=== PATIENT | female | born 1965 | race Caucasian/White ===

== ENCOUNTER 2016-10-11 17:03 | Emergency (ER) | payer BC ==
[2016-10-11] MEDS ORDERED: BACIGUENT PACKET TP ONE (17:17)
[2016-10-11] MEDS ORDERED: Adacel Vial IM ONE ×2 (17:17→17:23)
[2016-10-11] MEDS ORDERED: BACIGUENT PACKET ONE (17:20)
[2016-10-11] MEDS ORDERED: TORAdol 30 mg Injection IM ONE (17:36)
--- NOTE | 2016-10-11 17:43 | ERPHSYRPT ---
- History of Present Illness Time Seen by Provider: 10/11/16 17:29 Source: patient Exam Limitations: no limitations Patient Subjective Stated Complaint: pt states she fell last night while using the restroom. pt c/o pain to left face and right side of neck and right upper back. denies any loss of consciousness. Triage Nursing Assessment: ptp pink, warm, dry. c-collar placed upon arrival to ER. pt ambulated into ER without difficulty. laceration noted to left eyebroe. no brusing or deformities noted to neck or back. pupils perrl. Physician History: This is a 51-year-old white female with history of hypothyroidism depression she arrives with complaint of pain in her right lateral neck right trapezius muscle also a laceration to her left supraorbital ridge symptoms since 11:00 last night. According to the patient she was on the commode and fell over, striking the left side of her face she has some pain in the left supraorbital ridge she has a 2.5 cm very straight laceration just inferior to the left eyebrow. She states she had no loss of consciousness she has pain in her neck is described above in the pain overlying the right trapezius muscle. She has not had any problems with moving she is speaking fine she has no pain in her mouth. Past medical history includes hypothyroidism, depression. Past surgical history includes and uterine ablation, tonsillectomy, myringotomy tubes as a child. Social history patient denies tobacco alcohol or illicit drug use. Timing/Duration: yesterday (last night at 11 PM) Severity: moderate Modifying Factors: Improves With: nothing Associated Symptoms: other (pain with laceration left supraorbital ridge, right sided neck pain), No nausea, No vomiting, No abdominal pain, No shortness of breath, No heartburn, No diaphoresis, No cough, No chills, No chest pain, No fever, No headaches, No loss of appetite, No malaise, No rash, No syncope, No weakness Allergies/Adverse Reactions: No Known Drug Allergies Allergy (Unverified 10/11/16 17:13) Home Medications: Fluoxetine HCl 20 mg [Prozac 20 MG] 20 mg PO DAILY 01/13/13 [History] Levothyroxine Sodium 50 Mcg [Synthroid 50 Mcg] 50 mcg PO DAILY 01/13/13 [ History] Hydrochlorothiazide 25 mg [hydroDIURIL 25 MG] 25 mg PO DAILY 10/11/16 [ History] Hx Tetanus, Diphtheria Vaccination/Date Given: Yes (unknown) Hx Influenza Vaccination/Date Given: No Hx Pneumococcal Vaccination/Date Given: No Immunizations Up to Date: Yes - Review of Systems Constitutional: No Fever, No Chills Eyes: Other (Pain left supraorbital ridge), No Discharge, No Eye Pain, No Eye Redness, No Itchy, No Photophobia, No Tearing, No Vision Changes, No Double Vision, No Foreign Body Sensation Ears, Nose, & Throat: No Symptoms, No Ear Pain, No Ear Discharge, No Hearing Changes, No Tinnitus, No Nose Pain, No Nose Congestion, No Nose Discharge, No Sinus Drainage, No Epistaxis, No Mouth Pain, No Mouth Swelling, No Loose Teeth, No Throat Pain, No Throat Swelling, No Hoarse, No Painful Swallowing, No Snoring Respiratory: No Cough, No Dyspnea Cardiac: No Chest Pain, No Edema, No Syncope Abdominal/Gastrointestinal: No Abdominal Pain, No Nausea, No Vomiting, No Diarrhea Genitourinary Symptoms: No Dysuria Musculoskeletal: Neck Pain (pain right side of neck and right trapezius), Fall, Injury, No Arthralgias, No Back Pain, No Deformity, No Joint Redness, No Joint Pain, No Joint Swelling, No Myalgias Skin: Other (2.5 cm laceration left supraorbital ridge inferior to eyebrow) Neurological: No Dizziness, No Focal Weakness, No Sensory Changes Psychological: No Symptoms Endocrine: No Symptoms All Other Systems: Reviewed and Negative - Past Medical History Pertinent Past Medical History: Yes Neurological History: No Pertinent History ENT History: No Pertinent History Cardiac History: High Cholesterol Respiratory History: No Pertinent History Endocrine Medical History: Hypothyroidism Musculoskeletal History: No Pertinent History GI Medical History: No Pertinent History History: No Pertinent History Psycho-Social History: Depression Female Reproductive Disorders: Menstrual Problems Other Medical History: MURMER, MITRAL VALVE PROLAPSE. MENSTRUAL PROBLEMS- CONSTANT BLEEDING, HAD OBLASION - Past Surgical History Past Surgical History: Yes Neuro Surgical History: No Pertinent History Cardiac: No Pertinent History Respiratory: No Pertinent History Gastrointestinal: No Pertinent History Genitourinary: No Pertinent History Musculoskeletal: No Pertinent History Female Surgical History: Section Other Surgical History: uterine ablation - Social History Smoking Status: Never smoker Exposure to second hand smoke: No Drug Use: none Patient Lives Alone: Yes - Female History Hx Last Menstrual Period: ablation Hx Now: No - Nursing Vital Signs Nursing Vital Signs: Initial Vital Signs Temperature 98.2 F Temperature Source Oral Pulse Rate 84 Respiratory Rate 18 Blood Pressure [Right Arm] 129/78 Pain Intensity 4 - Physical Exam General Appearance: no apparent distress, alert Eye Exam: PERRL/EOMI, eyes nml inspection, other (fundi are unremarkable, 2.5 cm laceration left supraorbital ridge, inferior to eyebrow) Ears, Nose, Throat Exam: normal ENT inspection, TMs normal, pharynx normal, moist mucous membranes Neck Exam: other (Neck tender right side c-collar is in place tenderness over right trapezius) Respiratory Exam: normal breath sounds, lungs clear, No respiratory distress Cardiovascular Exam: regular rate/rhythm, normal heart sounds, normal peripheral pulses Gastrointestinal/Abdomen Exam: soft, normal bowel sounds, No tenderness, No mass Back Exam: normal inspection, normal range of motion, No CVA tenderness, No vertebral tenderness, No rash, No decreased range of motion, No muscle spasm, No point tenderness Extremity Exam: normal inspection, normal range of motion, pelvis stable, other (clavicles intact) Neurologic Exam: alert, oriented x 3, cooperative, normal mood/affect, nml cerebellar function, nml station & gait, sensation nml, No motor deficits Skin Exam: other (2.5 cm laceration left supraorbital ridge inferior to left eyebrow very straight) SpO2 Interpretation: normal (96%) SpO2: 96 - Course Nursing assessment & vital signs reviewed: Yes - Radiology Exams C-Spine X-ray Interpretation: Discussed w/ radiologist (C-spine: Lordotic straightening and mild C4-7 degenerative disc disease negative fracture/subluxation) Ordered Tests: Active Orders 24 hr Category Date Time Status Wound Care STAT Care 10/11/16 17:17 Active CERVICAL SPINE (2 OR 3 VIEW) Stat Exams 10/11/16 17:37 Taken Medication Summary Discontinued Medications Generic Name Dose Route Start Last Admin Trade Name Freq PRN Reason Stop Dose Admin Bacitracin 0.9 gm 10/11/16 17:17 10/11/16 17:24 Baciguent Packet TP 10/11/16 17:18 0.9 gm STAT ONE Administration Bacitracin Confirm 10/11/16 17:20 Baciguent Packet Administered 10/11/16 17:21 Dose 1 gm .ROUTE .STK-MED ONE Diphtheria/Tetanus/Acell Pertussis 0.5 ml 10/11/16 17:17 10/11/16 17:23 Adacel Vial IM 10/11/16 17:18 0.5 ml .ONCE ONE Administration Diphtheria/Tetanus/Acell Pertussis Confirm 10/11/16 17:23 Adacel Vial Administered 10/11/16 17:24 Dose 0.5 ml IM .STK-MED ONE Ketorolac Tromethamine 60 mg 10/11/16 17:36 10/11/16 17:47 Toradol 30 Mg Injection IM 10/11/16 17:37 60 mg STAT ONE Administration Ketorolac Tromethamine Confirm 10/11/16 17:47 Toradol 30 Mg Injection Administered 10/11/16 17:48 Dose 60 mg .ROUTE .STK-MED ONE - Progress Progress: improved Progress Note: 10/11/16 17:43 This is a 51-year-old white female she arrives with complaint of pain in the left supraorbital ridge, a laceration to her left supraorbital ridge inferior to her left eyebrow which is approximately 2.5 cm, pain in the right side of her neck and pain overlying the right trapezius. Patient's laceration has been cleansed and Steri-Strips are applied by the patient's nurse it has been almost 19 hours since the laceration and it is felt that suturing is not indicated at this time. Patient is given a c-collar by the nurse prior to my arrival she is tender on the right side of her neck and in the right trapezius Will go ahead and obtain x -ray of the patient's C-spine. Neurologically patient is intact cranial nerves II through XII are intact DTRs symmetrical equal 2 over 4 [place] Coma Scale is 15 rotary surface grinder are equal and symmetrical 5 over 5 finger-nose within normal limits speech is normal. Patient will be given DTaP Patient also given Toradol injection 60 mg IM. 10/11/16 18:21 C-spine is read by the radiologist there is some lordotic straightening and mild C4-7 degenerative disc disease negative fracture or subluxation. Will place patient on Flexeril and Naprosyn and [place]. 10/11/16 18:30 patient was given a prescription for Flexeril 10 mg #15, Naprosyn 500 mg #20 Patient has [place] a prescription was provided by computer as being 0 tablets of 5/325 this is been changed by me manually to #12 tablets. - Departure Time of Disposition: 18:31 Departure Disposition: Home Clinical Impression: facial laceration 18 hours old Facial contusion Qualifiers: Encounter type: initial encounter Qualified Code(s): S00.83XA - Contusion of other part of head, initial encounter Cervical strain Qualifiers: Encounter type: initial encounter Qualified Code(s): S16.1XXA - Strain of muscle, fascia and tendon at neck level, initial encounter Condition: Fair Critical Care Time: No Additional Instructions: Return home. Cold packs to contused area 24-48 hours. Flexeril 10 mg orally 3 times a day for 5 days. [place] 5/325 #12 one orally every 4-6 hours as needed for pain. Naprosyn 500 mg orally twice a day with food as needed for pain #20. Follow-up with your family Dr. symptoms are worse, no better in 48 hours, or persist longer than one week. Return for acute distress or for severe symptoms Follow-up with your family doctor or return if signs of infection or problems with laceration of your supraorbital ridge. Prescriptions: Cyclobenzaprine HCl [Flexeril] 10 mg PO TID #15 tablet Hydrocodone/Acetaminophen [[place] 5-325 Tablet] 1 tab PO Q4-6HPRN PRN #0 tablet PRN Reason: Pain Naproxen [Naprosyn] 500 mg PO BID #20 tablet
[2016-10-11] MEDS ORDERED: TORAdol 30 mg Injection ONE (17:47)
[2016-10-11 18:22] VITALS: O2SAT 96
[2016-10-11 18:40] VITALS: BP 130/80; PULSE 72
--- NOTE | 2016-10-12 08:33 | XRAY ---
Indication: Pain following fall. Comparison: None 3 views of the cervical spine demonstrates straightening of the cervical lordosis with mild/moderate C4-C7 degenerative disc disease as evidenced by disc space narrowing and endplate sclerosis/spurring. No acute fracture, subluxation, or soft tissue abnormalities. Impression: 1. Lordotic straightening, positional versus paraspinal spasm. Negative for acute fracture/subluxation. 2. C4-C7 degenerative disc disease.
== END 2016-10-11 18:40 | disposition home or self-care (01) ==
LOC: ED 17:03
DX: S00.83XA Contusion of other part of head, initial encounter (principal); S16.1XXA Strain of muscle, fascia and tendon at neck level, initial encounter; W18.12XA Fall from or off toilet with subsequent striking against object, initial encounter; S01.112A Laceration without foreign body of left eyelid and periocular area, initial encounter; E03.9 Hypothyroidism, unspecified; F32.9 Major depressive disorder, single episode, unspecified
CPT/HCPCS: 72040; 90471; 90715; 96372; 99284; J1885; L0172; A9270-GY

== ENCOUNTER 2017-04-13 06:06 | Day surgery (SDC) | payer BC ==
[2017-04-13] MEDS ORDERED: DIPRIVAN 200 MG/20 ML IV ONE (06:07)
[2017-04-13] MEDS ORDERED: Ketamine HCl 50 MG/ML IJ ONE (06:07)
[2017-04-13] MEDS ORDERED: Lactated Ringers 1,000 ML IV SCH (07:00)
[2017-04-13 09:06] VITALS: O2SAT 97
[2017-04-13 09:31] VITALS: BP 152/96; PULSE 66
--- NOTE | 2017-04-13 11:55 | OP ---
SURGERY DATE/TIME: 04/13/2017 0800 PREOPERATIVE DIAGNOSIS: Screening exam. POSTOPERATIVE DIAGNOSIS: Normal colon. PROCEDURE: Colonoscopy. SURGEON: Dr. Masters. ANESTHESIA: MAC. Medications given by anesthesia department. HISTORY: The patient is a 52 year-old white female presenting now for screening colonoscopy. She was appraised of the risks of the procedure including the risk of perforation, phlebitis, untoward reaction to medication, bleeding and missed lesions. The patient verbalized her understanding and desired to have the procedure performed. DESCRIPTION OF PROCEDURE: The patient was given the medications by the anesthesia department. She had continuous pulse oximetry, ECG monitoring, intermittent blood pressure monitoring and tidal CO2 monitoring during the examination. She was placed in the left lateral decubitus position. A digital rectal examination was performed and revealed normal anal sphincter tone and no masses. The flexible Olympus pediatric colonoscope was used to intubate the rectum. A view of the colon was developed sequentially to the cecum. Upon insertion and withdrawal, including a retroflex view in the rectum, no mucosal lesions were encountered. The scope was removed from the patient who tolerated the procedure well and was sent back to OP recovery in good condition. The prep was noted to be fair to good.
== END 2017-04-13 09:30 | disposition home or self-care (01) ==
LOC: SDC 06:06
PROVIDERS: ATTEND Family Medicine
PROC: 0DJD8ZZ Inspection of Lower Intestinal Tract, Via Natural or Artificial Opening Endoscopic (ICD-10-PCS; principal; 2017-04-13)
DX: Z12.11 Encounter for screening for malignant neoplasm of colon (principal); I10 Essential (primary) hypertension; E03.9 Hypothyroidism, unspecified
CPT/HCPCS: 00740; J2704

== ENCOUNTER 2018-10-19 06:50 | Emergency (ER) | payer BC ==
--- NOTE | 2018-10-19 07:33 | ERPHSYRPT ---
- History of Present Illness Time Seen by Provider: 10/19/18 07:31 Source: patient Exam Limitations: no limitations Patient Subjective Stated Complaint: states has had cough for several days and is having a headache from coughing. hx asthma. used inhaler yesterday and is taking mucinex without relief. Triage Nursing Assessment: ambulated to room per self. skin w/d, color normal, resp nonlabored. occasional exp wheeze heard. Physician History: 53 years old female came to ER states has had cough for several days and is having a headache from coughing. hx asthma. used inhaler yesterday and is taking mucinex without relief. Timing/Duration: day(s) Activities at Onset: none Associated Symptoms: cough, No fever, No wheezing, No weakness Allergies/Adverse Reactions: No Known Drug Allergies Allergy (Verified 10/19/18 07:29) Home Medications: Fluoxetine HCl 20 mg [Prozac 20 MG] 20 mg PO DAILY 01/13/13 [History] Levothyroxine Sodium 50 Mcg [Synthroid 50 Mcg] 50 mcg PO DAILY 01/13/13 [ History] Metoprolol Succinate 50 mg [Toprol Xl 50 MG] 50 mg PO DAILY 04/11/17 [ History] Triamterene/Hydrochlorothiazid [Triamterene-Hctz 37.5-25 mg Tb] 1 each PO DAILY 04/11/17 [History] Hx Tetanus, Diphtheria Vaccination/Date Given: Yes Hx Influenza Vaccination/Date Given: Yes Hx Pneumococcal Vaccination/Date Given: No Immunizations Up to Date: No - Review of Systems Constitutional: No Fever, No Chills Eyes: No Symptoms Ears, Nose, & Throat: No Symptoms Respiratory: Cough, No Dyspnea, No Dyspnea on Exertion (ANTONIO), No Wheezing Cardiac: No Chest Pain, No Edema, No Syncope Abdominal/Gastrointestinal: No Abdominal Pain, No Nausea, No Vomiting, No Diarrhea Genitourinary Symptoms: No Dysuria Musculoskeletal: No Back Pain, No Neck Pain Skin: No Rash Neurological: No Dizziness, No Focal Weakness, No Sensory Changes Psychological: No Symptoms Endocrine: No Symptoms All Other Systems: Reviewed and Negative - Past Medical History Pertinent Past Medical History: Yes Neurological History: No Pertinent History ENT History: No Pertinent History Cardiac History: High Cholesterol Respiratory History: Asthma Endocrine Medical History: Hypothyroidism Musculoskeletal History: No Pertinent History GI Medical History: No Pertinent History History: No Pertinent History Psycho-Social History: Depression Female Reproductive Disorders: Menstrual Problems Other Medical History: MURMER, MITRAL VALVE PROLAPSE. MENSTRUAL PROBLEMS- CONSTANT BLEEDING, HAD OBLASION - Past Surgical History Past Surgical History: Yes Neuro Surgical History: No Pertinent History Cardiac: No Pertinent History Respiratory: No Pertinent History Gastrointestinal: Cholecystectomy Genitourinary: No Pertinent History Musculoskeletal: No Pertinent History Female Surgical History: Section Other Surgical History: uterine ablation - Social History Smoking Status: Never smoker Exposure to second hand smoke: No Drug Use: none Patient Lives Alone: No - Nursing Vital Signs Nursing Vital Signs: Initial Vital Signs Temperature 99 F 10/19/18 07:14 Pulse Rate 86 10/19/18 07:14 Respiratory Rate 18 10/19/18 07:14 Blood Pressure 152/80 10/19/18 07:14 O2 Sat by Pulse Oximetry 95 10/19/18 07:14 Pain Scale Pain Intensity 5 - Physical Exam General Appearance: no apparent distress, alert Eye Exam: PERRL/EOMI Ears, Nose, Throat Exam: pharyngeal erythema Neck Exam: normal inspection, supple Respiratory Exam: wheezing Cardiovascular/Chest Exam: normal heart sounds, regular rate/rhythm Abdominal/Gastrointestinal Exam: soft, No tenderness, No distention, No mass Extremity Exam: non-tender, normal range of motion, normal inspection, no calf tenderness, no pedal edema Neurologic Exam: alert, oriented x 3, cooperative, manager commercial II-XII nml as tested, sensation nml, No motor deficits Skin Exam: normal color, warm, No dry SpO2 Interpretation: normal SpO2: 95 - Course Nursing assessment & vital signs reviewed: Yes - Radiology Exams Chest X-ray Interpretation: Reviewed by me, Negative Ordered Tests: Active Orders 24 hr Category Date Time Status CHEST 2 VIEWS (PA AND LAT) Stat Exams 10/19/18 07:26 Taken CBC W DIFF Stat Lab 10/19/18 07:45 Completed CMP Routine Lab 10/19/18 07:45 Received Lab/Rad Data: Laboratory Result Diagrams 10/19/18 07:45 Laboratory Results 10/19/18 Range/Units 07:45 WBC 7.8 (4.0-10.5) K/mm3 RBC 4.05 L (4.1-5.4) M/mm3 Hgb 12.5 (12.0-16.0) gm/dl Hct 38.8 (35-47) % MCV 95.8 (78-100) fl MCH 30.8 (26-32) pg MCHC 32.2 (32-36) g/dl RDW 13.6 (11.5-14.0) % Plt Count 316 (150-450) K/mm3 MPV 9.4 (6-9.5) fl Gran % 57.8 (36.0-66.0) % Eos # (Auto) 0.63 H (0-0.5) Absolute Lymphs (auto) 1.86 (1.0-4.6) Absolute Monos (auto) 0.79 (0.0-1.3) Lymphocytes % 23.7 L (24.0-44.0) % Monocytes % 10.1 (0.0-12.0) % Eosinophils % 8.0 H (0.00-5.0) % Basophils % 0.4 (0.0-0.4) % Absolute Granulocytes 4.53 (1.4-6.9) Basophils # 0.03 (0-0.4) - Progress Progress: improved Air Movement: good Blood Culture(s) Obtained: No Antibiotics given: Yes Counseled pt/family regarding: lab results, diagnosis, need for follow-up, rad results - Departure Departure Disposition: Home Clinical Impression: Acute bronchitis Qualifiers: Bronchitis organism: unspecified organism Qualified Code(s): J20.9 - Acute bronchitis, unspecified Condition: Stable Critical Care Time: No Referrals: CORNELIUS ALMENDAREZ [Primary Care Provider] - Instructions: Acute Bronchitis, Cough, Adult (DC) Additional Instructions: BAKARI LAGUNAS JESSICA was seen on 10/19/18 n the Emergency Room. At that time you were treated for an emergent condition, during your visit Laboratory, Radiology and/or other procedures may have been ordered. It is very important that you follow-up with your Primary Care Physician CORNELIUS ALMENDAREZ within the next 24-48 hours to review your Emergency Room visit and the final results of testing that was ordered. Some test results such as Urine Cultures, Blood Cultures, and other cultures if ordered will not be finalized for 24-48 hours. If you do not have a Primary Care Provider please call the medical records department at [phone] to obtain a copy of your results or you may sign into our patient portal to obtain these results by visiting us @ [email or web address] and completing the following steps: 1. Click on the Patient Portal link 2. Click the Patient Self Enrollment Link to complete the enrollment form and entering your 3. Once the enrollment form is completed you will receive an email with a temporary ID and password at the email address you provided. 4. Next choose a user name and password. Your user name must be at least 4 characters long and your password must be at least 4 characters long. 5. Choose a security question from the list and provide your answer to the question. If you already have signed into the Health Portal you may access your Health Care Information 08/01 by the following steps: 1. Login to our website @ [email or web address] 2. Enter your original user name and password. FAQS The [facility] Health Portal is an online tool that contains your Lab Results, Radiology Reports, Visit History, Discharge Instructions and Health Summary Lab and Radiology Results will not be available for 72 hours on the portal. The Portal is a secure site, passwords are encryted and URLs are re-written so they cannot be copied and pasted. You and authorized family members are the only ones who can access your Portal. Also there is a timeout feature that protects your information if you leave the Portal page open. If you have technical difficulty please use the Contact Us link on the page this will allow you to submit any questions you have regarding the Portal or you may contact the Medical Record Department at [phone] ext [phone]. Prescriptions: Amoxicillin 500 mg PO TID #30 tablet Guaifenesin/Codeine Phos [Cheratussin AC Syrup] 5 ml PO Q6H #100 liquid
[2018-10-19 07:54] LABS: BASOPHIL % 0.4 % (0.0-0.4); Basophil (Absolute #) 0.03 (0-0.4); Eosinophil (Absolute #) 0.63 (0-0.5); Granulocyte Absolute (ANC) 4.53 (1.4-6.9); Granulocytes % 57.8 % (36.0-66.0); Hematocrit 38.8 % (35-47); Hemoglobin 12.5 gm/dl (12.0-16.0); Lymphocyte (Absolute #) 1.86 (1.0-4.6); Lymphocytes % 23.7 % (24.0-44.0); Mean Cell Volume 95.8 fl (78-100); Mean Corpuscular Hgb Concent. 32.2 g/dl (32-36); Mean Platelet Volume 9.4 fl (6-9.5); Monocyte (Absolute #) 0.79 (0.0-1.3); Monocytes % 10.1 % (0.0-12.0); Platelet Count 316 K/mm3 (150-450); Red Blood Count 4.05 M/mm3 (4.1-5.4); Red Cell Distribution Width 13.6 % (11.5-14.0); White Blood Count 7.8 K/mm3 (4.0-10.5)
[2018-10-19 07:56] LABS: Mean Corpuscular Hemoglobin 30.8 pg (26-32)
[2018-10-19 08:08] LABS: ALBUMIN 4.1 g/dL (3.5-5.0); ALKALINE PHOSPHATASE 80 U/L (38-126); ANION GAP 14.2 MEQ/L (5-15); BLOOD UREA NITROGEN 12 mg/dL (7-17); CHLORIDE 104 mmol/L (98-107); Calcium 9.8 mg/dL (8.4-10.2); Carbon Dioxide 27 mmol/L (22-30); Creatinine 1 0.72 mg/dL (0.52-1.04); Glucose 89 mg/dL (74-106); Potassium 4.2 mmol/L (3.5-5.1); SGOT/AST 27 U/L (14-36); SGPT/ALT 19 U/L (0-35); SODIUM 141 mmol/L (137-145); Total Protein 7.4 g/dL (6.3-8.2)
[2018-10-19 08:31] VITALS: BP 148/80; PULSE 82; O2SAT 98
--- NOTE | 2018-10-19 20:43 | XRAY ---
Indication: Cough. Comparison: November 13, 2017. PA/lateral chest remains clear. Heart and mediastinal structures within normal limits. Bony thorax intact again with mild pectus excavatum deformity. Impression: Stable nonacute chest.
== END 2018-10-19 08:38 | disposition home or self-care (01) ==
LOC: ED 06:50
DX: J20.9 Acute bronchitis, unspecified (principal); J45.909 Unspecified asthma, uncomplicated; R51 Headache; Z79.899 Other long term (current) drug therapy; E78.00 Pure hypercholesterolemia, unspecified; E03.9 Hypothyroidism, unspecified; F42.3 Hoarding disorder; F32.9 Major depressive disorder, single episode, unspecified
CPT/HCPCS: 36415; 71046; 80053; 85025; 99284

== ENCOUNTER 2019-07-06 08:35 | Observation (INO) | payer BC ==
--- NOTE | 2019-07-06 08:48 | ERPHSYRPT ---
- History of Present Illness Time Seen by Provider: 07/06/19 08:35 Historian: patient Exam Limitations: no limitations Physician History: for the past 8.5 hours pt has had constant chest tightness 5/10 in severity with nausea, tingling of the left upper extremity and radiation to the back. pt also states she has had an intermittent non-productive cough for the past 2 years. pt denies shortness of air, fever, vomiting. Aspirin Treatment Today: 81 mg x 4, provided by ED Allergies/Adverse Reactions: No Known Drug Allergies Allergy (Verified 07/06/19 08:54) Home Medications: Fluoxetine HCl 20 mg [Prozac 20 MG] 20 mg PO DAILY 01/13/13 [History] Levothyroxine Sodium 50 Mcg [Synthroid 50 Mcg] 50 mcg PO DAILY 01/13/13 [ History] Metoprolol Succinate 50 mg [Toprol Xl 50 MG] 50 mg PO DAILY 04/11/17 [ History] Triamterene/Hydrochlorothiazid [Triamterene-Hctz 37.5-25 mg Tb] 1 each PO DAILY 04/11/17 [History] Ibuprofen/Diphenhydramine HCl [Ibuprofen Pm Softgel] 1 each PO HS 07/06/19 [ History] Hx Tetanus, Diphtheria Vaccination/Date Given: Yes Hx Influenza Vaccination/Date Given: Yes Hx Pneumococcal Vaccination/Date Given: No - Review of Systems Constitutional: No Fever Respiratory: Cough, No Dyspnea Cardiac: Other (chest tightness) Abdominal/Gastrointestinal: Nausea, No Vomiting Neurological: Other (left upper extremity tingling) All Other Systems: Reviewed and Negative - Past Medical History Pertinent Past Medical History: Yes Neurological History: No Pertinent History ENT History: No Pertinent History Cardiac History: High Cholesterol Respiratory History: Asthma Endocrine Medical History: Hypothyroidism Musculoskeletal History: No Pertinent History GI Medical History: No Pertinent History History: No Pertinent History Psycho-Social History: Depression Female Reproductive Disorders: Menstrual Problems Other Medical History: MURMER, MITRAL VALVE PROLAPSE. MENSTRUAL PROBLEMS- CONSTANT BLEEDING, HAD OBLASION - Past Surgical History Past Surgical History: Yes Neuro Surgical History: No Pertinent History Cardiac: No Pertinent History Respiratory: No Pertinent History Gastrointestinal: Cholecystectomy Genitourinary: No Pertinent History Musculoskeletal: No Pertinent History Female Surgical History: Section Other Surgical History: uterine ablation - Social History Smoking Status: Never smoker Exposure to second hand smoke: No Drug Use: none Patient Lives Alone: No - Nursing Vital Signs Nursing Vital Signs: Initial Vital Signs Temperature 98.1 F 07/06/19 08:36 Pulse Rate 72 07/06/19 08:36 Respiratory Rate 18 07/06/19 08:36 Blood Pressure 157/87 07/06/19 08:36 O2 Sat by Pulse Oximetry 97 07/06/19 08:36 Pain Scale Pain Intensity 4 - Physical Exam General Appearance: alert Eye Exam: PERRL/EOMI Ears, Nose, Throat Exam: pharynx normal, moist mucous membranes Neck Exam: normal inspection Respiratory Exam: lungs clear Cardiovascular Exam: normal heart sounds Gastrointestinal/Abdomen Exam: soft, normal bowel sounds Back Exam: normal range of motion Extremity Exam: No pedal edema Neurologic Exam: alert, cooperative Skin Exam: warm, dry SpO2 Interpretation: normal SpO2: 97 O2 Delivery: Room Air - Course Nursing assessment & vital signs reviewed: Yes EKG Interpreted by Me: RATE (75), Sinus Rhythm, NORMAL AXIS, NORMAL INTERVALS, Non-specific ST Changes - Radiology Exams Chest X-ray Interpretation: Interpreted by me, No Pneumonia Ordered Tests: Active Orders 24 hr Category Date Time Status Server Assistant STAT Care 07/06/19 08:50 Active Clean Catch Urine Specimen STAT Care 07/06/19 08:49 Active EKG-ER Only STAT Care 07/06/19 08:49 Active IV Insertion STAT Care 07/06/19 08:49 Active Oxygen-ED Only Nasal Cannula 2 lpm Care 07/06/19 08:49 Active Pulse Oximetry (ED) STAT Care 07/06/19 08:49 Active Cardiac Diet Diet 07/06/19 Dinner Active CHEST 2 VIEWS (PA AND LAT) Stat Exams 07/06/19 08:49 Taken CBC W DIFF Stat Lab 07/06/19 08:55 Completed CMP Stat Lab 07/06/19 08:55 Completed D-DIMER QUANTITATIVE Stat Lab 07/06/19 08:55 Completed NT PRO BNP Stat Lab 07/06/19 08:55 Completed PROTIME WITH INR Stat Lab 07/06/19 08:55 Completed PTT Stat Lab 07/06/19 08:55 Completed TROPONIN Q3H Lab 07/06/19 08:55 Completed TROPONIN Q3H Lab 07/06/19 12:05 Completed TROPONIN Q3H Lab 07/06/19 15:00 Ordered TROPONIN Q3H Lab 07/06/19 18:00 Ordered TROPONIN Q3H Lab 07/06/19 21:00 Ordered Urine Triage Profile Stat Lab 07/06/19 09:18 Completed Medication Summary Generic Name Dose Route Start Last Admin Trade Name Adi PRN Reason Stop Dose Admin Sodium Chloride 1,000 mls @ 100 mls/hr 07/06/19 09:00 07/06/19 09:12 Sodium Chloride 0.9% 1000 Ml IV 08/05/19 08:59 100 mls/hr .Q10H PAMELLA Administration Discontinued Medications Generic Name Dose Route Start Last Admin Trade Name Adi PRN Reason Stop Dose Admin Aspirin 324 mg 07/06/19 08:49 07/06/19 09:14 Baby Aspirin 81 Mg Chew PO 07/06/19 08:50 324 mg STAT ONE Administration Aspirin Confirm 07/06/19 09:07 Baby Aspirin 81 Mg Chew Administered 07/06/19 09:08 Dose 324 mg .ROUTE .STK-MED ONE Nitroglycerin 0.4 mg 07/06/19 08:49 07/06/19 09:17 Nitrostat 0.4 Mg (Ed) SL 07/06/19 08:50 0.4 mg STAT ONE Administration Nitroglycerin Confirm 07/06/19 09:07 Nitrostat 0.4 Mg (Ed) Administered 07/06/19 09:08 Dose 0.4 mg SL .STK-MED ONE Lab/Rad Data: Laboratory Result Diagrams 07/06/19 08:55 07/06/19 08:55 Laboratory Results 07/06/19 07/06/19 07/06/19 Range/Units 12:05 09:18 08:55 WBC (4.0-10.5) K/mm3 RBC (4.1-5.4) M/mm3 Hgb (12.0-16.0) gm/dl Hct (35-47) % MCV (78-100) fl MCH (26-32) pg MCHC (32-36) g/dl RDW (11.5-14.0) % Plt Count (150-450) K/mm3 MPV (7.5-11.0) fl Gran % (36.0-66.0) % Eos # (Auto) (0-0.5) Absolute Lymphs (auto) (1.0-4.6) Absolute Monos (auto) (0.0-1.3) Lymphocytes % (24.0-44.0) % Monocytes % (0.0-12.0) % Eosinophils % (0.00-5.0) % Basophils % (0.0-0.4) % Absolute Granulocytes (1.4-6.9) Basophils # (0-0.4) PT (9.95-12.35) SECONDS INR (0.8-3.0) APTT (25.3-37.0) SECONDS D-Dimer (215-500) ng/mL Sodium (137-145) mmol/L Potassium (3.5-5.1) mmol/L Chloride (98-107) mmol/L Carbon Dioxide (22-30) mmol/L Anion Gap (5-15) MEQ/L BUN (7-17) mg/dL Creatinine (0.52-1.04) mg/dL Estimated GFR ML/MIN Glucose (74-106) mg/dL Calcium (8.4-10.2) mg/dL Total Bilirubin (0.2-1.3) mg/dL AST (14-36) U/L ALT (0-35) U/L Alkaline Phosphatase (38-126) U/L Troponin I < 0.012 < 0.012 (0.000-0.034) ng/mL NT-Pro-B Natriuret Pep (0-900) pg/mL Serum Total Protein (6.3-8.2) g/dL Albumin (3.5-5.0) g/dL Urine Opiates Level NEGATIVE (NEGATIVE) Ur Methadone NEGATIVE (NEGATIVE) Urine Barbiturates NEGATIVE (NEGATIVE) Ur Phencyclidine (PCP) NEGATIVE (NEGATIVE) Urine Amphetamine NEGATIVE (NEGATIVE) U Benzodiazepine Level NEGATIVE (NEGATIVE) Urine Cocaine NEGATIVE (NEGATIVE) Urine Marijuana (THC) NEGATIVE (NEGATIVE) 07/06/19 07/06/19 07/06/19 Range/Units 08:55 08:55 08:55 WBC 6.4 (4.0-10.5) K/mm3 RBC 4.52 (4.1-5.4) M/mm3 Hgb 13.8 (12.0-16.0) gm/dl Hct 42.3 (35-47) % MCV 93.6 (78-100) fl MCH 30.5 (26-32) pg MCHC 32.6 (32-36) g/dl RDW 13.1 (11.5-14.0) % Plt Count 380 (150-450) K/mm3 MPV 9.7 (7.5-11.0) fl Gran % 39.6 (36.0-66.0) % Eos # (Auto) 0.26 (0-0.5) Absolute Lymphs (auto) 3.06 (1.0-4.6) Absolute Monos (auto) 0.49 (0.0-1.3) Lymphocytes % 48.0 H (24.0-44.0) % Monocytes % 7.7 (0.0-12.0) % Eosinophils % 4.1 (0.00-5.0) % Basophils % 0.6 (0.0-0.4) % Absolute Granulocytes 2.52 (1.4-6.9) Basophils # 0.04 (0-0.4) PT 10.2 (9.95-12.35) SECONDS INR 0.90 (0.8-3.0) APTT 38.4 H (25.3-37.0) SECONDS D-Dimer 452 (215-500) ng/mL Sodium 141 (137-145) mmol/L Potassium 3.9 (3.5-5.1) mmol/L Chloride 102 (98-107) mmol/L Carbon Dioxide 30 (22-30) mmol/L Anion Gap 12.2 (5-15) MEQ/L BUN 8 (7-17) mg/dL Creatinine 0.77 (0.52-1.04) mg/dL Estimated GFR > 60.0 ML/MIN Glucose 87 (74-106) mg/dL Calcium 9.8 (8.4-10.2) mg/dL Total Bilirubin 0.50 (0.2-1.3) mg/dL AST 23 (14-36) U/L ALT 15 (0-35) U/L Alkaline Phosphatase 104 (38-126) U/L Troponin I (0.000-0.034) ng/mL NT-Pro-B Natriuret Pep 57.6 (0-900) pg/mL Serum Total Protein 7.8 (6.3-8.2) g/dL Albumin 4.5 (3.5-5.0) g/dL Urine Opiates Level (NEGATIVE) Ur Methadone (NEGATIVE) Urine Barbiturates (NEGATIVE) Ur Phencyclidine (PCP) (NEGATIVE) Urine Amphetamine (NEGATIVE) U Benzodiazepine Level (NEGATIVE) Urine Cocaine (NEGATIVE) Urine Marijuana (THC) (NEGATIVE) - Progress Air Movement: fair Progress Note: 07/06/19 14:50 second EKG(1432): rate = 62, sinus rhythm, normal axis, st depression in V5. Discussed with : Stewart (obs) Will see patient in: hospital (observation) - Departure Departure Disposition: Observation Clinical Impression: chest tightness, Hypothyroidism Condition: Stable Critical Care Time: No Referrals: CORNELIUS ALMENDAREZ [Primary Care Provider] -
[2019-07-06] MEDS ORDERED: Nitrostat 0.4 MG (ED) SL ONE ×2 (08:49→09:07)
[2019-07-06] MEDS ORDERED: BABY ASPIRIN 81 MG CHEW PO ONE (08:49)
[2019-07-06] MEDS ORDERED: Sodium Chloride 0.9% 1000 ML 1,000 ML IV SCH (09:00)
[2019-07-06] MEDS ORDERED: BABY ASPIRIN 81 MG CHEW ONE (09:07)
[2019-07-06] MEDS ORDERED: Sodium Chloride 0.9% 1000 ML 1,000 ML ONE (09:07)
[2019-07-06 09:11] LABS: INR 0.9 (0.8-3.0); PROTIME 10.2 SECONDS (9.95-12.35)
[2019-07-06 09:12] LABS: Absolute Neutrophil Ct (ANC) 2.52 (1.4-6.9); BASOPHIL % 0.6 % (0.0-0.4); Basophil (Absolute #) 0.04 (0-0.4); Eosinophil % 4.1 % (0.00-5.0); Eosinophil (Absolute #) 0.26 (0-0.5); Hematocrit 42.3 % (35-47); Hemoglobin 13.8 gm/dl (12.0-16.0); Lymphocyte (Absolute #) 3.06 (1.0-4.6); Mean Cell Volume 93.6 fl (78-100); Mean Corpuscular Hemoglobin 30.5 pg (26-32); Mean Corpuscular Hgb Concent. 32.6 g/dl (32-36); Mean Platelet Volume 9.7 fl (7.5-11.0); Monocyte (Absolute #) 0.49 (0.0-1.3); Monocytes % 7.7 % (0.0-12.0); Neutrophil % 39.6 % (36.0-66.0); Platelet Count 380 K/mm3 (150-450); Red Blood Count 4.52 M/mm3 (4.1-5.4); Red Cell Distribution Width 13.1 % (11.5-14.0); White Blood Count 6.4 K/mm3 (4.0-10.5)
[2019-07-06 09:14] LABS: PTT 38.4 SECONDS (25.3-37.0)
[2019-07-06 10:03] LABS: Amphetamine,Urine NEGATIVE (NEGATIVE); Barbiturate,Urine NEGATIVE (NEGATIVE); Benzodiazepine,Urine NEGATIVE (NEGATIVE); Cocaine,Urine NEGATIVE (NEGATIVE); Methadone,Urine NEGATIVE (NEGATIVE); Opiate,Urine NEGATIVE (NEGATIVE); PCP,Urine NEGATIVE (NEGATIVE); THC,Urine NEGATIVE (NEGATIVE)
[2019-07-06 10:14] LABS: ALBUMIN 4.5 g/dL (3.5-5.0); ALKALINE PHOSPHATASE 104 U/L (38-126); ANION GAP 12.2 MEQ/L (5-15); BLOOD UREA NITROGEN 8 mg/dL (7-17); CHLORIDE 102 mmol/L (98-107); Calcium 9.8 mg/dL (8.4-10.2); Carbon Dioxide 30 mmol/L (22-30); Creatinine 1 0.77 mg/dL (0.52-1.04); Glucose 87 mg/dL (74-106); NT PRO BNP 57.6 pg/mL (0-900); Potassium 3.9 mmol/L (3.5-5.1); SGOT/AST 23 U/L (14-36); SGPT/ALT 15 U/L (0-35); SODIUM 141 mmol/L (137-145); Total Protein 7.8 g/dL (6.3-8.2)
[2019-07-06] MEDS ORDERED: Zofran 4 MG/2 ML VIAL IV PRN (15:20)
[2019-07-06] MEDS ORDERED: Nitrostat 0.4 MG Tablet SL PRN (15:20)
[2019-07-06] MEDS: Sodium Chloride 0.9% 1000 ML 1,000 ML IV SCH (16:08)
--- NOTE | 2019-07-06 18:20 | XRAY ---
Indication: Chest pain. Comparison: October 19, 2018. PA/lateral chest again demonstrates normal heart and lungs. Bony thorax intact again with mild pectus excavatum deformity. No new/acute findings.
[2019-07-06] MEDS: TYLENOL 325 MG PO PRN (19:18)
[2019-07-06] MEDS ORDERED: MOTRIN 200 MG PO ONE (22:00)
[2019-07-06] MEDS ORDERED: Prozac 20 MG PO SCH (22:00)
[2019-07-06] MEDS ORDERED: BENADRYL 25 MG CAPSULE PO ONE (22:00)
[2019-07-07] MEDS: Sodium Chloride 0.9% 1000 ML 1,000 ML IV SCH (02:01)
[2019-07-07] MEDS: TYLENOL 325 MG PO PRN (04:52)
[2019-07-07 05:01] LABS: Absolute Neutrophil Ct (ANC) 2.45 (1.4-6.9); BASOPHIL % 0.5 % (0.0-0.4); Basophil (Absolute #) 0.03 (0-0.4); Eosinophil (Absolute #) 0.23 (0-0.5); Hematocrit 39.3 % (35-47); Hemoglobin 12.5 gm/dl (12.0-16.0); Lymphocyte (Absolute #) 2.59 (1.0-4.6); Lymphocytes % 44.9 % (24.0-44.0); Mean Cell Volume 95.4 fl (78-100); Mean Corpuscular Hemoglobin 30.3 pg (26-32); Mean Corpuscular Hgb Concent. 31.8 g/dl (32-36); Mean Platelet Volume 9.3 fl (7.5-11.0); Monocyte (Absolute #) 0.47 (0.0-1.3); Monocytes % 8.1 % (0.0-12.0); Neutrophil % 42.5 % (36.0-66.0); Platelet Count 326 K/mm3 (150-450); Red Blood Count 4.12 M/mm3 (4.1-5.4); Red Cell Distribution Width 13.1 % (11.5-14.0); White Blood Count 5.8 K/mm3 (4.0-10.5)
[2019-07-07 05:15] LABS: ALBUMIN 3.8 g/dL (3.5-5.0); ALKALINE PHOSPHATASE 79 U/L (38-126); ANION GAP 10.5 MEQ/L (5-15); BLOOD UREA NITROGEN 12 mg/dL (7-17); CHLORIDE 107 mmol/L (98-107); Calcium 9.1 mg/dL (8.4-10.2); Carbon Dioxide 30 mmol/L (22-30); Creatinine 1 0.74 mg/dL (0.52-1.04); Glucose 90 mg/dL (74-106); SGOT/AST 22 U/L (14-36); SGPT/ALT 12 U/L (0-35); SODIUM 143 mmol/L (137-145); Total Protein 6.9 g/dL (6.3-8.2)
[2019-07-07 07:08] VITALS: BP 137/73; PULSE 63; O2SAT 96
[2019-07-07] MEDS ORDERED: solu-MEDROL 125 MG IV SCH (08:00)
--- NOTE | 2019-07-07 09:51 | DS ---
DISCHARGE DIAGNOSIS: CHEST PAIN. HOSPITAL COURSE: The patient is a 54 year-old white female who reports that she had chest pain the evening before being seen in the emergency room waking her up from sleep. She reports it was on the left side of her chest encircling her breast but there is an area that seems to be point tender in the left costosternal area. The patient reports that she has also developed a bit of a cough and does have a history of asthma. She has been around no one else in the home that is ill. She lives alone. PAST MEDICAL/SURGICAL HISTORY: Otherwise significant for hypothyroidism, hyperlipidemia, previous mitral valve prolapse, history of menstrual irregularities. She has had a previous ablation performed. She had section. HOME MEDICATIONS: Fluoxetine 20 mg a day, Synthroid 50 mcg daily, metoprolol extended-release 50 mg daily, Maxzide 25 daily, ibuprofen, diphenhydramine at night to help sleep. ALLERGIES: NKDA. PHYSICAL EXAMINATION: The patient's vital signs on admission showed her temperature to be 98.1F, pulse 72, respiratory rate 18, blood pressure 157/87. O2 saturation 97%. HEENT: Normocephalic, atraumatic. Pupils equal round reactive to light. Extraocular movements intact. Oropharynx is pink and moist. NECK: Supple without lymphadenopathy, thyromegaly or JVD. CHEST: Clear to auscultation with good air movement. HEART: Regular rate and rhythm without murmurs, rubs or gallops. There is slight tenderness in the second rib on the costosternal area. ABDOMEN: Soft. No palpable masses. EXTREMITIES: Without cyanosis, clubbing or edema. NEUROLOGIC: The patient is alert and oriented x3. LAB DATA AND TESTS: The EKG showed normal sinus rhythm with no changes. Her troponins have all been less than 0.012. She had D-dimer which was normal at 452. International normalized ratio 0.90. CBC was normal. Urine drug screen was negative. Metabolic panel was normal. ASSESSMENT: A patient with chest wall pain. She has been given a shot of Solu-Medrol 25 IV and allowed to discharge home with follow up in the office in one week. She is to let us know if she runs any fever as we are having a flu epidemic at the present time. We will swab for influenza should she start developing fever.
[2019-07-07] MEDS ORDERED: Maxzide 25MG PO SCH (10:00)
[2019-07-07] MEDS ORDERED: Maxzide-25MG Tablet PO SCH (10:00)
[2019-07-07] MEDS ORDERED: Toprol Xl 50 MG PO SCH (10:00)
[2019-07-07] MEDS ORDERED: FLUZONE QUAD 2019-2020 SYRINGE IM ONE (10:00)
[2019-07-07] MEDS ORDERED: DIPHENHYDRAMINE HCL PO SCH (22:00)
[2019-07-07] MEDS ORDERED: IBUPROFEN PO SCH (22:00)
[2019-07-07] MEDS ORDERED: MOTRIN 200 MG PO SCH (22:00)
[2019-07-07] MEDS ORDERED: BENADRYL 25 MG CAPSULE PO SCH (22:00)
[2019-07-08] MEDS ORDERED: SYNTHROID 50 MCG PO SCH (07:00)
== END 2019-07-07 09:35 | disposition home or self-care (01) ==
LOC: ED 08:35 → MED SURG 15:12
PROVIDERS: ADMIT Family Medicine; ATTEND Family Medicine
DX: R07.9 Chest pain, unspecified (principal); E03.9 Hypothyroidism, unspecified; E78.5 Hyperlipidemia, unspecified; Z79.899 Other long term (current) drug therapy
CPT/HCPCS: 36000; 36415; 71046; 80053; 80307; 83880; 84484; 85025; 85379; 85610; 85730; 93005; 93041; 93268; 94760; 96360; 99285; G0378; 90686; J2930; A9270-GY

== ENCOUNTER 2019-09-21 08:20 | Emergency (ER) | payer BC ==
--- NOTE | 2019-09-21 09:05 | ERPHSYRPT ---
- History of Present Illness Time Seen by Provider: 09/21/19 08:45 Source: patient Exam Limitations: no limitations Physician History: This is a 54-year-old white female with a history of asthma on Advair inhaler who presents with approximately 3 to 4-day history of worsening cough and associated shortness of breath, sweating and weakness. She denies abdominal pain she denies nausea vomiting diarrhea. Patient has been exposed to an individual who is on a mechanical respirator and is suspected to be positive for the coronavirus. Patient symptoms are worsening. Timing/Duration: day(s) (3 to 4 days.), worse Cough Quality/Degree: moderate, dry cough Possible Cause: occasional episodes (But this time the symptoms are much worse.) Modifying Factors: Improves With: coughing, deep breath Associated Symptoms: chest pain/soreness (With coughing), cough, shortness of breath, No fever, No chills International travel in last 2 weeks: No Allergies/Adverse Reactions: No Known Drug Allergies Allergy (Verified 09/21/19 09:03) Home Medications: Fluoxetine HCl 20 mg [Prozac 20 MG] 20 mg PO HS 01/13/13 [History] Levothyroxine Sodium 50 Mcg [Synthroid 50 Mcg] 50 mcg PO DAILY 01/13/13 [ History] Metoprolol Succinate 50 mg [Toprol Xl 50 MG] 50 mg PO DAILY 04/11/17 [ History] Triamterene/Hydrochlorothiazid [Triamterene-Hctz 37.5-25 mg Tb] 1 each PO DAILY 04/11/17 [History] Ibuprofen/Diphenhydramine HCl [Ibuprofen Pm Softgel] 1 each PO HS 07/06/19 [ History] Hx Tetanus, Diphtheria Vaccination/Date Given: Yes Hx Influenza Vaccination/Date Given: Yes Hx Pneumococcal Vaccination/Date Given: No Travel Risk - International Travel Have you traveled outside of the country in past 3 weeks: No Have you or anyone close to you been diagnosed with or: No Do your reside in a community with a known COVID-19 case?: Yes If Yes where:: [facility] - Coronavirus Screening Has patient experienced Coronavirus symptoms: Yes Symptoms experienced: respiratory symptoms (i.e.Cought,shortness of breath), weakness Date of respiratory symptoms onset:: 09/17/19 - Review of Systems Constitutional: No Symptoms, Night Sweats Eyes: No Symptoms Ears, Nose, & Throat: Nose Congestion, Sinus Drainage Respiratory: Cough, Dyspnea Cardiac: No Symptoms Abdominal/Gastrointestinal: No Symptoms Genitourinary Symptoms: No Symptoms Musculoskeletal: No Symptoms Skin: No Symptoms Neurological: No Symptoms Psychological: No Symptoms Endocrine: No Symptoms Hematologic/Lymphatic: No Symptoms Immunological/Allergic: No Symptoms All Other Systems: Reviewed and Negative - Past Medical History Pertinent Past Medical History: Yes Neurological History: No Pertinent History ENT History: No Pertinent History Cardiac History: Hypertension Respiratory History: Asthma Endocrine Medical History: Hypothyroidism Musculoskeletal History: No Pertinent History GI Medical History: No Pertinent History History: No Pertinent History Psycho-Social History: Depression Female Reproductive Disorders: Menstrual Problems Other Medical History: MURMER, MITRAL VALVE PROLAPSE. MENSTRUAL PROBLEMS- CONSTANT BLEEDING, HAD ABLASION - Past Surgical History Past Surgical History: Yes Neuro Surgical History: No Pertinent History Cardiac: No Pertinent History Respiratory: No Pertinent History Gastrointestinal: Cholecystectomy Genitourinary: No Pertinent History Musculoskeletal: No Pertinent History Female Surgical History: Section Other Surgical History: uterine ablation - Social History Smoking Status: Never smoker Exposure to second hand smoke: No Drug Use: none Patient Lives Alone: No - Nursing Vital Signs Nursing Vital Signs: Initial Vital Signs Temperature 98.2 F 09/21/19 08:51 Pulse Rate 125 H 09/21/19 08:51 Respiratory Rate 20 09/21/19 08:51 Blood Pressure 148/102 09/21/19 08:51 O2 Sat by Pulse Oximetry 96 09/21/19 08:51 Pain Scale Pain Intensity 0 - Physical Exam General Appearance: mild distress, alert, anxiety Eye Exam: PERRL/EOMI, eyes nml inspection Ears, Nose, Throat Exam: normal ENT inspection, TMs normal, moist mucous membranes Neck Exam: normal inspection, non-tender, supple, full range of motion Respiratory Exam: normal breath sounds, lungs clear, airway intact, No chest tenderness, No respiratory distress Cardiovascular Exam: regular rate/rhythm, normal heart sounds, normal peripheral pulses Gastrointestinal/Abdomen Exam: soft, normal bowel sounds, No tenderness Pelvic Exam: not done Rectal Exam: not done Back Exam: normal inspection Extremity Exam: normal inspection, normal range of motion, pelvis stable Neurologic Exam: alert, oriented x 3, cooperative, textile artist II-XII nml as tested Skin Exam: normal color, warm, dry Lymphatic Exam: No adenopathy SpO2 Interpretation: normal O2 Delivery: Room Air - Course Nursing assessment & vital signs reviewed: Yes EKG Interpreted by Me: RATE (95), Sinus Rhythm, NORMAL INTERVALS, NORMAL QRS, Non-specific ST Changes, Other (sI/q!!!-new onset. Comparison EKG dated July 06, 2019. When comparing today's EKG there is new onset nonspecific ST abnormalities and the new axi change.) Ordered Tests: Active Orders 24 hr Category Date Time Status Webmaster STAT Care 09/21/19 09:17 Active EKG-ER Only STAT Care 09/21/19 09:15 Active IV Insertion STAT Care 09/21/19 09:15 Active Isolation, Initiate & Maintain Q4H Care 09/21/19 09:01 Active Pulse Oximetry (ED) STAT Care 09/21/19 09:15 Active CHEST 1 VIEW (PORTABLE) Stat Exams 09/21/19 09:16 Taken CBC W DIFF Stat Lab 09/21/19 09:15 Completed CMP Stat Lab 09/21/19 09:15 Completed Ferritin Stat Lab 09/21/19 Completed LDH-LACTATE DEHYDROGENASE Stat Lab 09/21/19 09:17 Completed Lactic Acid Stat Lab 09/21/19 09:15 Completed Respiratory MDI STAT RT 09/21/19 09:03 Completed Respiratory Therapy Assessment DAILY RT 09/21/19 09:04 Completed Lab/Rad Data: Laboratory Result Diagrams 09/21/19 09:15 09/21/19 09:15 Laboratory Results 09/21/19 09/21/19 09/21/19 Range/Units Unknown Unknown 09:17 WBC (4.0-10.5) K/mm3 RBC (4.1-5.4) M/mm3 Hgb (12.0-16.0) gm/dl Hct (35-47) % MCV (78-100) fl MCH (26-32) pg MCHC (32-36) g/dl RDW (11.5-14.0) % Plt Count (150-450) K/mm3 MPV (7.5-11.0) fl Gran % (36.0-66.0) % Eos # (Auto) (0-0.5) Absolute Lymphs (auto) (1.0-4.6) Absolute Monos (auto) (0.0-1.3) Lymphocytes % (24.0-44.0) % Monocytes % (0.0-12.0) % Eosinophils % (0.00-5.0) % Basophils % (0.0-0.4) % Absolute Granulocytes (1.4-6.9) Basophils # (0-0.4) Sodium (137-145) mmol/L Potassium (3.5-5.1) mmol/L Chloride (98-107) mmol/L Carbon Dioxide (22-30) mmol/L Anion Gap (5-15) MEQ/L BUN (7-17) mg/dL Creatinine (0.52-1.04) mg/dL Estimated GFR ML/MIN Glucose (74-106) mg/dL Lactic Acid (0.4-2.0) Calcium (8.4-10.2) mg/dL Ferritin 31.3 (11.1-264) ng/mL Total Bilirubin (0.2-1.3) mg/dL AST (14-36) U/L ALT (0-35) U/L Alkaline Phosphatase (38-126) U/L Lactate Dehydrogenase 213 (120-246) U/L Serum Total Protein (6.3-8.2) g/dL Albumin (3.5-5.0) g/dL Influenza Type A Ag NEGATIVE (NEGATIVE) Influenza Type B Ag NEGATIVE (NEGATIVE) RSV (PCR) NEGATIVE (Negative) 09/21/19 09/21/19 09/21/19 Range/Units 09:15 09:15 09:15 WBC 7.1 (4.0-10.5) K/mm3 RBC 4.30 (4.1-5.4) M/mm3 Hgb 13.3 (12.0-16.0) gm/dl Hct 40.8 (35-47) % MCV 94.9 (78-100) fl MCH 30.9 (26-32) pg MCHC 32.6 (32-36) g/dl RDW 13.7 (11.5-14.0) % Plt Count 372 (150-450) K/mm3 MPV 9.1 (7.5-11.0) fl Gran % 47.8 (36.0-66.0) % Eos # (Auto) 0.37 (0-0.5) Absolute Lymphs (auto) 2.73 (1.0-4.6) Absolute Monos (auto) 0.57 (0.0-1.3) Lymphocytes % 38.3 (24.0-44.0) % Monocytes % 8.0 (0.0-12.0) % Eosinophils % 5.2 H (0.00-5.0) % Basophils % 0.7 (0.0-0.4) % Absolute Granulocytes 3.40 (1.4-6.9) Basophils # 0.05 (0-0.4) Sodium 141 (137-145) mmol/L Potassium 4.1 (3.5-5.1) mmol/L Chloride 107 (98-107) mmol/L Carbon Dioxide 23 (22-30) mmol/L Anion Gap 14.6 (5-15) MEQ/L BUN 9 (7-17) mg/dL Creatinine 0.77 (0.52-1.04) mg/dL Estimated GFR > 60.0 ML/MIN Glucose 95 (74-106) mg/dL Lactic Acid 1.5 (0.4-2.0) Calcium 9.6 (8.4-10.2) mg/dL Ferritin (11.1-264) ng/mL Total Bilirubin 0.70 (0.2-1.3) mg/dL AST 38 H (14-36) U/L ALT 17 (0-35) U/L Alkaline Phosphatase 91 (38-126) U/L Lactate Dehydrogenase (120-246) U/L Serum Total Protein 8.1 (6.3-8.2) g/dL Albumin 4.6 (3.5-5.0) g/dL Influenza Type A Ag (NEGATIVE) Influenza Type B Ag (NEGATIVE) RSV (PCR) (Negative) - Progress Progress: improved, re-examined Air Movement: good Progress Note: 09/21/19 11:16 Chest x-ray reveals no acute process. We walked the patient and performed a walking room air oxygenation saturation and heart rate check. Her oxygen saturation dropped to 89 to 90%, patient did not feel any more shortness of breath than when not ambulating. Her heart rate went from the 80s to 104. Patient is still afebrile. Patient's coughing did not increase. I spoke with Dr. Gillis who is covering for Dr. Masters. I reviewed the patient's history, condition, vital signs, laboratory and chest x- ray results. Our plan is to allow the patient to be discharged to home and instructions to follow-up if her symptoms worsen within the next 12 to 24 hours. Patient is to increase her metered-dose inhaler to every 4 hours with 2 to 3 puffs at a time. I will send home a prescription for cough medicine in this patient. Patient was told to quarantine herself until her covid 19 laboratory results have returned. Counseled pt/family regarding: lab results, diagnosis, need for follow-up, rad results - Departure Departure Disposition: Home Clinical Impression: Cough, Bronchitis Condition: Stable Critical Care Time: No Referrals: CORNELIUS MASTERS [Primary Care Provider] - Additional Instructions: Return to the emergency department if your symptoms worsen. Use your meter dose inhaler 2 to 3 puffs 4 times daily. Use the cough medicine as prescribed. Quarantine yourself until yorre covid-19 test results have returned. Prescriptions: Hydrocodone Bit/Acetaminophen [Hydrocodone-Acetaminophen Soln] 10 ml PO Q6H # 120 ml
[2019-09-21 09:40] LABS: BASOPHIL % 0.7 % (0.0-0.4); Basophil (Absolute #) 0.05 (0-0.4); Eosinophil % 5.2 % (0.00-5.0); Eosinophil (Absolute #) 0.37 (0-0.5); Hematocrit 40.8 % (35-47); Hemoglobin 13.3 gm/dl (12.0-16.0); Lymphocyte (Absolute #) 2.73 (1.0-4.6); Lymphocytes % 38.3 % (24.0-44.0); Mean Cell Volume 94.9 fl (78-100); Mean Corpuscular Hemoglobin 30.9 pg (26-32); Mean Corpuscular Hgb Concent. 32.6 g/dl (32-36); Mean Platelet Volume 9.1 fl (7.5-11.0); Monocyte (Absolute #) 0.57 (0.0-1.3); Neutrophil % 47.8 % (36.0-66.0); Platelet Count 372 K/mm3 (150-450); Red Cell Distribution Width 13.7 % (11.5-14.0); White Blood Count 7.1 K/mm3 (4.0-10.5)
[2019-09-21 09:46] LABS: ALBUMIN 4.6 g/dL (3.5-5.0); ALKALINE PHOSPHATASE 91 U/L (38-126); ANION GAP 14.6 MEQ/L (5-15); BLOOD UREA NITROGEN 9 mg/dL (7-17); CHLORIDE 107 mmol/L (98-107); Calcium 9.6 mg/dL (8.4-10.2); Carbon Dioxide 23 mmol/L (22-30); Creatinine 1 0.77 mg/dL (0.52-1.04); Glucose 95 mg/dL (74-106); Potassium 4.1 mmol/L (3.5-5.1); SGOT/AST 38 U/L (14-36); SGPT/ALT 17 U/L (0-35); SODIUM 141 mmol/L (137-145); Total Protein 8.1 g/dL (6.3-8.2)
[2019-09-21 09:53] LABS: INFLUENZA A NEGATIVE (NEGATIVE); INFLUENZA B NEGATIVE (NEGATIVE); RESPIRATORY SYNCTIAL VIRUS NEGATIVE (Negative)
[2019-09-21 11:54] VITALS: BP 131/89; PULSE 85; O2SAT 99
--- NOTE | 2019-09-21 20:29 | XRAY ---
Indication: Short of breath. Comparison: July 06, 2019. Portable chest less inflated crowding lung bases. No focal infiltrate, consolidation, or large effusion. Heart and mediastinal structures within normal limits. Bony thorax intact. Impression: Continued nonacute chest.
== END 2019-09-21 12:00 | disposition home or self-care (01) ==
LOC: ED 08:20
DX: R05 Cough (principal); J40 Bronchitis, not specified as acute or chronic
CPT/HCPCS: 36000; 36415; 71045; 80053; 82728; 83605; 83615; 85025; 87631; 93005; 93041; 94640; 94760; 99000; 99284

== ENCOUNTER 2019-11-18 05:47 | Day surgery (SDC) | payer OTHER ==
[2019-11-18] MEDS ORDERED: Lactated Ringers 1,000 ML IV SCH (06:30)
[2019-11-18 09:36] VITALS: BP 126/76; PULSE 69; O2SAT 95
--- NOTE | 2019-11-18 13:26 | OP ---
SURGERY DATE/TIME: 11/18/2019 0800 PREOPERATIVE DIAGNOSES: 1) Gastroesophageal reflux. 2) Chronic bronchitis. POSTOPERATIVE DIAGNOSIS: Mild gastritis. PROCEDURE: Esophagogastroduodenoscopy with cold forceps biopsy. SURGEON: Dr. Masters. ANESTHESIA: Medications were given by the anesthesia department. HISTORY: The patient is a 54 year old white female who presents now with complaints of chest discomfort and reflux. She reports she is also having problems with chronic bronchitis. The patient is felt the need to have endoscopic evaluation. She was appraised of the risks of the procedure including the risk of perforation, phlebitis, untoward reaction to medication, bleeding and missed lesions. The patient verbalized her understanding and desired to have the procedure performed. DESCRIPTION OF PROCEDURE: The patient was given the medications by the anesthesia department. She had continuous pulse oximetry, ECG monitoring, intermittent blood pressure monitoring and tidal CO2 monitoring during the examination. She was placed in the left lateral decubitus position. A bite block was placed. The flexible Olympus gastroscope was used to intubate the oropharynx. A view of the larynx was obtained and was normal. The scope was easily introduced in the esophagus which appeared to be normal throughout its length. The stomach was entered where normal gastric rugal folds were seen and these distended nicely with insufflation of air. The scope was passed along the greater curvature of the stomach to the antrum to the pylorus which was intubated. Duodenum inspected and found to be normal. The scope is withdrawn towards the stomach. A retroflex view was obtained of the lesser curvature, fundus and cardia regions of the stomach and these appeared to be essentially normal. The scope was then redirected towards the gastric antrum where biopsies were obtained to rule out the presence of Helicobacter pylori-type organisms using cold forceps biopsy. The scope was then removed from the patient who tolerated the procedure well and was sent back to outpatient recovery in good condition.
== END 2019-11-18 09:35 | disposition home or self-care (01) ==
LOC: SDC 05:47
PROVIDERS: ATTEND Family Medicine
DX: K29.70 Gastritis, unspecified, without bleeding (principal); K21.9 Gastro-esophageal reflux disease without esophagitis; R10.13 Epigastric pain; I10 Essential (primary) hypertension; J42 Unspecified chronic bronchitis; Z86.79 Personal history of other diseases of the circulatory system; Z79.899 Other long term (current) drug therapy

== ENCOUNTER 2020-09-03 15:06 | Emergency (ER) | payer OTHER ==
[2020-09-03] MEDS ORDERED: Sodium Chloride 0.9% 1000 ML 1,000 ML IV STA (15:46)
--- NOTE | 2020-09-03 15:49 | ERPHSYRPT ---
- History of Present Illness Time Seen by Provider: 09/03/20 15:09 Historian: patient Exam Limitations: no limitations Patient Subjective Stated Complaint: pt here for right sided abd pain off and on for about 2 weeks, with some nasuea today, Triage Nursing Assessment: pt walked in, resp easy , skin w.d.p, abd soft , moves all ext well, no edema noted Physician History: 55 years old female presented in the ER with chief complaint of right flank/right lower quadrant pain intermittently for last 2 weeks. Pain is repr oducible with palpation, activity and better with resting. Moderate intensity sharp nature, nonradiating, not associated with nausea vomiting or diarrhea. Denies any urinary symptoms. No fever or chills reported. Does have history of hysterectomy and cholecystectomy. Timing/Duration: week(s) (2), intermittent, gradual onset, worse Activities at Onset: activity Quality: sharpness Abdominal Pain Onset Location: RLQ, flank Pain Radiation: no radiation Severity of Pain-Max: moderate Severity of Pain-Current: moderate Modifying Factors: Improves With: rest. Worsens With: movement, palpation Associated Symptoms: denies symptoms Previous symptoms: no prior history Allergies/Adverse Reactions: No Known Drug Allergies Allergy (Verified 09/03/20 15:25) Home Medications: Fluoxetine HCl 20 mg [Prozac 20 MG] 20 mg PO HS 01/13/13 [History] Levothyroxine Sodium 50 Mcg [Synthroid 50 Mcg] 50 mcg PO DAILY 01/13/13 [History] Metoprolol Succinate 50 mg [Toprol Xl 50 MG] 50 mg PO DAILY 04/11/17 [History] Triamterene/Hydrochlorothiazid [Triamterene-Hctz 37.5-25 mg Tb] 1 each PO DAILY 04/11/17 [History] Omeprazole 20 mg PO DAILY 11/18/19 [History] Simvastatin 20Mg [Zocor 20Mg] 20 mg PO DAILY 11/18/19 [History] Fluticasone Propionate [Flovent 110 Mcg MDI] 2 puffs DAILY 09/03/20 [History] Hx Tetanus, Diphtheria Vaccination/Date Given: Yes Hx Influenza Vaccination/Date Given: No Hx Pneumococcal Vaccination/Date Given: No Immunizations Up to Date: Yes Travel Risk - International Travel Have you traveled outside of the country in past 3 weeks: No - Coronavirus Screening Are you exhibiting any of the following symptoms?: No Close contact with a COVID-19 positive Pt in past 14-21 Days: No - Review of Systems Constitutional: No Symptoms Eyes: No Symptoms Ears, Nose, & Throat: No Symptoms Respiratory: No Symptoms Cardiac: No Symptoms Abdominal/Gastrointestinal: Abdominal Pain Genitourinary Symptoms: No Symptoms (Yes or) Musculoskeletal: No Symptoms Skin: No Symptoms Neurological: No Symptoms Psychological: No Symptoms Endocrine: No Symptoms Hematologic/Lymphatic: No Symptoms Immunological/Allergic: No Symptoms - Past Medical History Pertinent Past Medical History: Yes Neurological History: No Pertinent History ENT History: No Pertinent History Cardiac History: High Cholesterol, Hypertension Respiratory History: Asthma Endocrine Medical History: Hypothyroidism Musculoskeletal History: No Pertinent History GI Medical History: Other History: No Pertinent History Psycho-Social History: Depression Female Reproductive Disorders: Menstrual Problems Other Medical History: MURMER, MITRAL VALVE PROLAPSE. MENSTRUAL PROBLEMS- CONSTANT BLEEDING, HAD ABLASION,gastritis - Past Surgical History Past Surgical History: Yes Neuro Surgical History: No Pertinent History Cardiac: No Pertinent History Respiratory: No Pertinent History Gastrointestinal: Cholecystectomy Genitourinary: No Pertinent History Musculoskeletal: No Pertinent History Female Surgical History: Section Other Surgical History: uterine ablation - Social History Smoking Status: Never smoker Exposure to second hand smoke: No Drug Use: none Patient Lives Alone: Yes - Female History Hx Last Menstrual Period: post Hx Now: No - Nursing Vital Signs Nursing Vital Signs: Initial Vital Signs Temperature 97.2 F 09/03/20 15:18 Pulse Rate 100 H 09/03/20 15:18 Respiratory Rate 18 09/03/20 15:18 Blood Pressure 145/88 09/03/20 15:18 O2 Sat by Pulse Oximetry 96 09/03/20 15:18 Pain Scale Pain Intensity 0 - Physical Exam General Appearance: no apparent distress, alert Eye Exam: eyes nml inspection Ears, Nose, Throat Exam: normal ENT inspection, pharynx normal Neck Exam: normal inspection, supple, full range of motion Respiratory Exam: normal breath sounds, lungs clear Cardiovascular Exam: regular rate/rhythm, normal heart sounds Gastrointestinal/Abdomen Exam: soft, normal bowel sounds, tenderness (Right lower quadrant), guarding (Right lower quadrant), No rebound Back Exam: normal inspection, normal range of motion Extremity Exam: normal inspection, normal range of motion Neurologic Exam: alert, oriented x 3, cooperative Skin Exam: normal color SpO2 Interpretation: normal SpO2: 96 O2 Delivery: Room Air Ordered Tests: Active Orders 24 hr Category Date Time Status IV Insertion STAT Care 09/03/20 15:46 Active ABDOMEN AND PELVIS W CONTRAST [CT] Stat Exams 09/03/20 15:46 Completed CBC W DIFF Stat Lab 09/03/20 15:35 Completed CMP Stat Lab 09/03/20 15:35 Completed LIPASE Stat Lab 09/03/20 15:35 Completed UA W/RFX UR CULTURE Stat Lab 09/03/20 16:12 Completed Medication Summary Discontinued Medications Generic Name Dose Route Start Last Admin Trade Name Freq PRN Reason Stop Dose Admin Sodium Chloride 1,000 mls @ 999 mls/hr 09/03/20 15:46 09/03/20 16:20 Sodium Chloride 0.9% 1000 Ml IV 09/03/20 16:46 999 mls/hr .Q1H1M STA Administration Sodium Chloride Confirm 09/03/20 16:18 Sodium Chloride 0.9% 1000 Ml Administered 09/03/20 16:19 Dose 1,000 mls @ ud .ROUTE .STK-MED ONE Lab/Rad Data: Laboratory Result Diagrams 09/03/20 15:35 09/03/20 15:35 Laboratory Results 09/03/20 09/03/20 09/03/20 Range/Units 16:12 15:35 15:35 WBC 10.2 (4.0-10.5) K/mm3 RBC 4.12 (4.1-5.4) M/mm3 Hgb 12.4 (12.0-16.0) gm/dl Hct 39.2 (35-47) % MCV 95.1 (78-100) fl MCH 30.1 (26-32) pg MCHC 31.6 L (32-36) g/dl RDW 13.5 (11.5-14.0) % Plt Count 416 (150-450) K/mm3 MPV 9.1 (7.5-11.0) fl Gran % 63.1 (36.0-66.0) % Eos # (Auto) 0.21 (0-0.5) Absolute Lymphs (auto) 2.80 (1.0-4.6) Absolute Monos (auto) 0.70 (0.0-1.3) Lymphocytes % 27.6 (24.0-44.0) % Monocytes % 6.9 (0.0-12.0) % Eosinophils % 2.1 (0.00-5.0) % Basophils % 0.3 (0.0-0.4) % Absolute Granulocytes 6.42 (1.4-6.9) Basophils # 0.03 (0-0.4) Sodium 138 (137-145) mmol/L Potassium 3.4 L (3.5-5.1) mmol/L Chloride 98 (98-107) mmol/L Carbon Dioxide 31 H (22-30) mmol/L Anion Gap 12.9 (5-15) MEQ/L BUN 21 H (7-17) mg/dL Creatinine 0.79 (0.52-1.04) mg/dL Estimated GFR > 60.0 ML/MIN Glucose 105 (74-106) mg/dL Calcium 9.5 (8.4-10.2) mg/dL Total Bilirubin 0.20 (0.2-1.3) mg/dL AST 24 (14-36) U/L ALT 25 (0-35) U/L Alkaline Phosphatase 80 (38-126) U/L Serum Total Protein 7.5 (6.3-8.2) g/dL Albumin 4.5 (3.5-5.0) g/dL Lipase 145 (23-300) U/L Urine Color STRAW (YELLOW) Urine Appearance CLEAR (CLEAR) Urine pH 6.0 (5-6) Ur Specific [place] 1.003 (1.005-1.025) Urine Protein NEGATIVE (Negative) Urine Ketones NEGATIVE (NEGATIVE) Urine Blood NEGATIVE (0-5) Vasquez/ul Urine Nitrite NEGATIVE (NEGATIVE) Urine Bilirubin NEGATIVE (NEGATIVE) Urine Urobilinogen NEGATIVE (0-1) mg/dL Ur Leukocyte Esterase NEGATIVE (NEGATIVE) Urine WBC (Auto) 0-2 (0-5) /HPF Urine RBC (Auto) NONE (0-2) /HPF U Epithel Cells (Auto) NONE (FEW) /HPF Urine Bacteria (Auto) NONE SEEN (NEGATIVE) /HPF Urine Mucus (Auto) SLIGHT (NEGATIVE) /HPF Urine Culture Reflexed NO (NO) Urine Glucose NEGATIVE (NEGATIVE) mg/dL - Progress Progress: pain not gone completely, re-examined Progress Note: 09/03/20 17:21 55 years old is evaluated for right flank/right lower quadrant pain. She offered pain medication which she refused. Acute abdomen work-up is negative with normal white count, grossly unremarkable chemistries. No UTI. CT abdomen pelvis showed small hemangioma but no other acute findings. Patient does not have any peritoneal signs on repeated evaluation. She still does not want anything for pain. It could be related to adhesions from her previous surgeries. Do not know the exact cause of her pain but have ruled out all the major emergencies. Recommended using Tylenol ibuprofen and outpatient follow- up. Discussed signs symptoms of worsening needing return to ER which she seems understanding. Counseled pt/family regarding: lab results, diagnosis, need for follow-up, rad results - Departure Departure Disposition: Home Clinical Impression: Right sided abdominal pain Condition: Stable Critical Care Time: No Referrals: CORNELIUS ALMENDAREZ [Primary Care Provider] - Follow Up with PCP/3 days Instructions: Acute Abdomen (Belly Pain), Adult (DC) Additional Instructions: Use Tylenol/ibuprofen as needed for pain. Follow-up with primary care doctor for reevaluation. Return to ER for intractable pain or if develop fever chills vomiting etc.
[2020-09-03 16:00] LABS: Absolute Neutrophil Ct (ANC) 6.42 (1.4-6.9); BASOPHIL % 0.3 % (0.0-0.4); Basophil (Absolute #) 0.03 (0-0.4); Eosinophil % 2.1 % (0.00-5.0); Eosinophil (Absolute #) 0.21 (0-0.5); Hematocrit 39.2 % (35-47); Hemoglobin 12.4 gm/dl (12.0-16.0); Lymphocytes % 27.6 % (24.0-44.0); Mean Cell Volume 95.1 fl (78-100); Mean Corpuscular Hemoglobin 30.1 pg (26-32); Mean Corpuscular Hgb Concent. 31.6 g/dl (32-36); Mean Platelet Volume 9.1 fl (7.5-11.0); Monocytes % 6.9 % (0.0-12.0); Neutrophil % 63.1 % (36.0-66.0); Platelet Count 416 K/mm3 (150-450); Red Blood Count 4.12 M/mm3 (4.1-5.4); Red Cell Distribution Width 13.5 % (11.5-14.0); White Blood Count 10.2 K/mm3 (4.0-10.5)
[2020-09-03 16:17] LABS: ALBUMIN 4.5 g/dL (3.5-5.0); ALKALINE PHOSPHATASE 80 U/L (38-126); ANION GAP 12.9 MEQ/L (5-15); BLOOD UREA NITROGEN 21 mg/dL (7-17); CHLORIDE 98 mmol/L (98-107); Calcium 9.5 mg/dL (8.4-10.2); Carbon Dioxide 31 mmol/L (22-30); Creatinine 1 0.79 mg/dL (0.52-1.04); EST GLOMERULAR FILTRATION RATE > 60.0 ML/MIN; Glucose 105 mg/dL (74-106); LIPASE 145 U/L (23-300); Potassium 3.4 mmol/L (3.5-5.1); SGOT/AST 24 U/L (14-36); SGPT/ALT 25 U/L (0-35); SODIUM 138 mmol/L (137-145); Total Protein 7.5 g/dL (6.3-8.2)
[2020-09-03] MEDS ORDERED: Sodium Chloride 0.9% 1000 ML 1,000 ML ONE (16:18)
[2020-09-03 16:26] LABS: Appearance CLEAR (CLEAR); Bilirubin NEGATIVE (NEGATIVE); Blood NEGATIVE Ery/ul (0-5); Glucose NEGATIVE (NEGATIVE); Ketones NEGATIVE (NEGATIVE); Leukocyte Esterase NEGATIVE (NEGATIVE); Mucus SLIGHT /HPF (NEGATIVE); Nitrite NEGATIVE (NEGATIVE); Protein,Urine Dip NEGATIVE (Negative); Specific Gravity 1.003 (1.005-1.025); Urobilinogen NEGATIVE mg/dL (0-1); WBC 0-2 /HPF (0-5)
[2020-09-03 16:33] LABS: Bacteria NONE SEEN /HPF (NEGATIVE)
--- NOTE | 2020-09-03 17:00 | XRAY ---
Indication: Right flank pain. Multiple contiguous images obtained through the abdomen and pelvis using 80 cc Isovue 370 contrast. Comparison: None Lung bases demonstrates mild fibrosis/scarring. No infiltrate or effusion. Heart is not enlarged. Noncontrasted stomach and bowel loops appear nonobstructed. Normal appendix. Previous cholecystectomy. No free fluid/air. Left lobe of the liver demonstrates a 2.2 cm hemangioma. Remaining liver, pancreas, spleen, adrenal glands, kidneys, ureters, bladder, uterus, and aorta appear unremarkable. No pathologic retroperitoneal lymphadenopathy. Osseous structures intact with minimal/mild degenerative changes throughout the thoracolumbar spine and mild dextroscoliosis centered at L3. No ventral or inguinal hernias. Impression: 1. Hepatic hemangioma and chronic bony findings. 2. Remaining CT abdomen/pelvis with contrast exam is negative.
[2020-09-03 17:21] VITALS: BP 137/89; PULSE 73
[2020-09-03 17:23] VITALS: O2SAT 96
== END 2020-09-03 17:33 | disposition home or self-care (01) ==
LOC: ED 15:06
DX: R10.31 Right lower quadrant pain (principal); Z79.899 Other long term (current) drug therapy
CPT/HCPCS: 36000; 36415; 74177; 80053; 81001; 83690; 85025; 99284

== ENCOUNTER 2022-04-19 13:02 | Day surgery (SDC) | payer OTHER ==
[2022-04-19] MEDS ORDERED: Depo-Medrol 40 MG/ML IM ONE (13:03)
[2022-04-19] MEDS ORDERED: BUPIVACAINE 0.5% VIAL IJ ONE (13:03)
[2022-04-19] MEDS ORDERED: DIPRIVAN 200 MG/20 ML IV ONE (14:33)
--- NOTE | 2022-04-19 14:59 | XRAY ---
Indication: Right SI joint injection. Intraoperative fluoroscopy provided for 7 seconds. 2 digital spot images submitted for interpretation demonstrates posterior needle tip projecting over the right SI joint. Correlate with intraoperative findings/report.
[2022-04-19] MEDS ORDERED: Lactated Ringers 1,000 ML IV ONE (15:04)
--- NOTE | 2022-04-19 15:13 | XRAY ---
7 seconds fluoroscopy time in surgery for injection of the right SI joint.
== END 2022-04-19 15:05 | disposition home or self-care (01) ==
LOC: SDC-PAIN 13:02
PROVIDERS: ATTEND Psychiatry & Neurology Pain Medicine
DX: M46.1 Sacroiliitis, not elsewhere classified (principal); Z79.899 Other long term (current) drug therapy
CPT/HCPCS: 27096; 72170; 77002; J1030; J2704; G0260

== ENCOUNTER 2022-07-12 10:48 | Day surgery (SDC) | payer OTHER ==
[2022-07-12] MEDS ORDERED: BUPIVACAINE 0.5% VIAL IJ ONE (10:49)
[2022-07-12] MEDS ORDERED: Depo-Medrol 40 MG/ML IM ONE (10:49)
[2022-07-12] MEDS ORDERED: Lactated Ringers 1,000 ML IV ONE (13:29)
--- NOTE | 2022-07-12 13:56 | XRAY ---
Indication: Right SI joint injection. Intraoperative fluoroscopy provided for 11 seconds. 2 digital spot images submitted for interpretation demonstrates posterior needle tip projecting of the right SI joint. Correlate with intraoperative findings/report.
--- NOTE | 2022-07-12 16:35 | XRAY ---
11 seconds of fluoroscopy was used in surgery for a right sacroiliac joint injection.
== END 2022-07-12 13:25 | disposition home or self-care (01) ==
LOC: SDC-PAIN 10:48
PROVIDERS: ATTEND Psychiatry & Neurology Pain Medicine
DX: M46.1 Sacroiliitis, not elsewhere classified (principal); Z79.899 Other long term (current) drug therapy
CPT/HCPCS: 27096; 72170; 77002; J1030; G0260

== ENCOUNTER 2022-12-12 11:32 | Emergency (ER) | payer OTHER ==
[2022-12-12] MEDS ORDERED: TORAdol 30 mg Injection IV ONE (12:19)
[2022-12-12 12:30] LABS: Absolute Neutrophil Ct (ANC) 4.18 x10^3/uL (1.4-6.9); BASOPHIL % 0.6 % (0.0-0.4); Basophil (Absolute #) 0.05 x10^3/uL (0-0.4); Eosinophil % 2.2 % (0.00-5.0); Eosinophil (Absolute #) 0.18 x10^3/uL (0-0.5); Hematocrit 39.6 % (35-47); Hemoglobin 12.4 g/dL (12.0-16.0); IMMATURE GRAN # 0.02 x10^3u/L (0.00-0.03); IMMATURE GRAN % 0.2 % (0.00-0.4); Lymphocyte (Absolute #) 3.02 x10^3/uL (1.0-4.6); Lymphocytes % 37.3 % (24.0-44.0); Mean Cell Volume 93.8 fL (78-100); Mean Corpuscular Hemoglobin 29.4 pg (26-32); Mean Corpuscular Hgb Concent. 31.3 g/dL (32-36); Mean Platelet Volume 9.7 fL (7.5-11.0); Monocyte (Absolute #) 0.65 x10^3/uL (0.0-1.3); Neutrophil % 51.7 % (36.0-66.0); Platelet Count 410 x10^3/uL (150-450); Red Blood Count 4.22 x10^6/uL (4.1-5.4); Red Cell Distribution Width 12.8 % (11.5-14.0); White Blood Count 8.1 x10^3/uL (4.0-10.5)
[2022-12-12] MEDS ORDERED: Sodium Chloride 0.9% 1000 ML 1,000 ML IV SCH (12:30)
--- NOTE | 2022-12-12 12:34 | XRAY ---
Indication: Lower abdomen pain. Multiple contiguous axial images obtained through the abdomen and pelvis without contrast. Comparison: September 03, 2020 Lung bases again demonstrate mild fibrosis/scarring. No infiltrate or effusion. Heart not enlarged. Noncontrasted stomach and bowel loops are nonobstructed with normal appendix. Again cholecystectomy. Previous hepatic hemangioma grossly unchanged on this noncontrast exam. No free fluid/air. Remaining liver, pancreas, spleen, adrenal glands, kidneys, ureters, bladder, uterus, and aorta are unremarkable for noncontrast exam. Osseous structures intact again with minimal/mild degenerative changes throughout the visualized spine and mild dextroscoliosis. Impression: Grossly stable bibasilar pulmonary fibrosis/scarring, hepatic hemangioma, and chronic bony findings. No new/acute abnormalities on this noncontrast exam.
--- NOTE | 2022-12-12 12:44 | ERPHSYRPT ---
- History of Present Illness Time Seen by Provider: 12/12/22 12:41 Source: patient Exam Limitations: no limitations Patient Subjective Stated Complaint: Pt states "On sunday I started to have lower abdominal pain and now it is in my back and my butt hurts. I had an accident with diarrhea yesterday." Triage Nursing Assessment: Pt presented alert and oriented X 3, skin pwd. Pt ambulates with a hunched over gait, pt will have occasional screams and gasps with pain to her lower back. Physician History: Patient is a 57-year-old female presents to our ED for evaluation of lower abdominal pain. Pain started Sunday approximately 4 days ago. Pain described as an ache that is intermittent. Pain mostly at the right lower quadrant into her right flank. Patient states that her right buttock is involved as well. No trauma. No fever. No history of the same. Symptoms are moderate to severe intensity. No specific worsening or improving factors. Patient voices no other complaints or concerns at this time. Portions of this note were created with voice recognition technology. There may be grammatical, spelling, punctuation or sound alike errors Timing/Duration: day(s) Severity: moderate (4 days) Modifying Factors: Improves With: nothing Associated Symptoms: other (Patient is experiencing diarrhea.) Allergies/Adverse Reactions: milk Allergy (Mild, Verified 12/12/22 11:47) unknown Home Medications: Fluoxetine HCl 20 mg [Prozac 20 MG] 20 mg PO HS 01/13/13 [History] Levothyroxine Sodium 50 Mcg [Synthroid 50 Mcg] 50 mcg PO DAILY 01/13/13 [History] Metoprolol Succinate 50 mg [Toprol Xl 50 MG] 50 mg PO DAILY 04/11/17 [History] Triamterene/Hydrochlorothiazid [Triamterene-Hctz 37.5-25 mg Tb] 1 each PO DAILY 04/11/17 [History] Omeprazole 20 mg PO DAILY 11/18/19 [History] Simvastatin 20Mg [Zocor 20Mg] 20 mg PO DAILY 11/18/19 [History] Fluticasone Propionate [Flovent 110 Mcg MDI] 2 puffs DAILY 09/03/20 [History] Fluticasone/Umeclidin/Vilanter [Trelegy Ellipta 200-62.5-25] 1 puff IH DAILY 12/12/22 [History] Hx Tetanus, Diphtheria Vaccination/Date Given: Yes Hx Influenza Vaccination/Date Given: No Hx Pneumococcal Vaccination/Date Given: No Immunizations Up to Date: Yes Travel Risk - International Travel Have you traveled outside of the country in past 3 weeks: No - Coronavirus Screening Are you exhibiting any of the following symptoms?: No Close contact with a COVID-19 positive Pt in past 14-21 Days: No - Vaccine Status Have you recieved a Covid-19 vaccination: Yes [employer]: Moderna - Vaccination Dates Date of 2cond Vaccination (if applicable): 2020 - Review of Systems Constitutional: No Symptoms, No Fever, No Chills Eyes: No Symptoms Ears, Nose, & Throat: No Symptoms Respiratory: No Symptoms, No Cough, No Dyspnea Cardiac: No Symptoms, No Chest Pain, No Edema, No Syncope Abdominal/Gastrointestinal: No Symptoms, No Abdominal Pain, No Nausea, No Vomiting, No Diarrhea Genitourinary Symptoms: No Symptoms, No Dysuria Musculoskeletal: No Symptoms, No Back Pain, No Neck Pain Skin: No Symptoms, No Rash Neurological: No Symptoms, No Dizziness, No Focal Weakness, No Sensory Changes Psychological: No Symptoms Endocrine: No Symptoms Hematologic/Lymphatic: No Symptoms Immunological/Allergic: No Symptoms All Other Systems: Reviewed and Negative - Past Medical History Pertinent Past Medical History: Yes Neurological History: No Pertinent History ENT History: No Pertinent History Cardiac History: Hypertension, Other Respiratory History: Asthma, COPD Endocrine Medical History: Other Musculoskeletal History: Arthritis GI Medical History: Other History: No Pertinent History Psycho-Social History: Depression Female Reproductive Disorders: Menstrual Problems Other Medical History: RAYNAUDS SYNDROME. MITRAL VALVE PROPLASE, HEART MURMUR,THYROID ISSUES. ARTHRITIS IN BACK AND RIGHT HIP. PATIENT REPORTS 3 C- SECTIONS, OVARIAN ABLATION, GALL BLADDER REMOVAL, T&A REMOVAL, INJECTION IN BACK ~ 6 MONTHS AGO. - Past Surgical History Past Surgical History: Yes Neuro Surgical History: No Pertinent History Cardiac: No Pertinent History Respiratory: No Pertinent History Gastrointestinal: Cholecystectomy Genitourinary: No Pertinent History Musculoskeletal: No Pertinent History Female Surgical History: Section Other Surgical History: uterine ablation - Social History Smoking Status: Never smoker Exposure to second hand smoke: No Drug Use: none Patient Lives Alone: Yes - Nursing Vital Signs Nursing Vital Signs: Initial Vital Signs Temperature 97.6 F 12/12/22 11:41 Pulse Rate 88 12/12/22 11:41 Respiratory Rate 20 12/12/22 11:41 Blood Pressure 164/108 12/12/22 11:41 O2 Sat by Pulse Oximetry 100 12/12/22 11:41 Pain Scale Pain Intensity 10 - Physical Exam General Appearance: no apparent distress, alert Eye Exam: PERRL/EOMI, eyes nml inspection Ears, Nose, Throat Exam: normal ENT inspection, TMs normal, pharynx normal, moist mucous membranes Neck Exam: normal inspection, non-tender, supple, full range of motion Respiratory Exam: normal breath sounds, lungs clear, No respiratory distress Cardiovascular Exam: regular rate/rhythm, normal heart sounds, normal peripheral pulses Gastrointestinal/Abdomen Exam: soft, normal bowel sounds, other (Tenderness to palpation right lower abdomen. Patient states the sensation of this area is somewhat decreased due to history of a ), No tenderness, No mass Back Exam: normal inspection, normal range of motion, No CVA tenderness, No vertebral tenderness Extremity Exam: normal inspection, normal range of motion, pelvis stable Neurologic Exam: alert, oriented x 3, cooperative, normal mood/affect, nml cerebellar function, nml station & gait, sensation nml, No motor deficits Skin Exam: normal color, warm, dry, No rash Lymphatic Exam: No adenopathy SpO2 Interpretation: normal SpO2: 100 O2 Delivery: Room Air - Course Nursing assessment & vital signs reviewed: Yes - CT Exams Abdomen/Pelvis CT Interpretation: Tele-radiologist Report (Bibasilar pulmonary fibrosis, hepatic hemangioma, chronic bony findings) Ordered Tests: Active Orders 24 hr Category Date Time Status IV Insertion STAT Care 12/12/22 12:19 Active ABDOMEN AND PELVIS W/0 CONTRAS [CT] Stat Exams 12/12/22 11:59 Completed ALBUMIN Stat Lab 12/12/22 11:55 Completed ALKALINE PHOSPHATASE Stat Lab 12/12/22 11:55 Completed BILIRUBIN,TOTAL Stat Lab 12/12/22 11:55 Completed CBC W DIFF Stat Lab 12/12/22 12:19 Completed SGOT/AST Stat Lab 12/12/22 11:55 Completed SGPT/ALT Stat Lab 12/12/22 11:55 Completed TROPONIN Q4H Lab 12/12/22 11:55 Completed TROPONIN Q4H Lab 12/12/22 16:30 Ordered TROPONIN Q4H Lab 12/12/22 20:30 Ordered Total Protein Stat Lab 12/12/22 11:55 Completed UA W/RFX UR CULTURE Stat Lab 12/12/22 11:55 Completed Medication Summary Generic Name Dose Route Start Last Admin Trade Name Adi PRN Reason Stop Dose Admin Sodium Chloride 1,000 mls @ 100 mls/hr 12/12/22 12:30 12/12/22 13:10 Sodium Chloride 0.9% 1000 Ml IV 01/11/23 12:29 100 mls/hr .Q10H PAMELLA Administration Discontinued Medications Generic Name Dose Route Start Last Admin Trade Name Adi PRN Reason Stop Dose Admin Ketorolac Tromethamine 30 mg 12/12/22 12:19 12/12/22 13:11 Ketorolac Tromethamine 30 Mg/Ml Inj IV 12/12/22 12:20 30 mg STAT ONE Administration Ketorolac Tromethamine Confirm 12/12/22 13:07 Ketorolac Tromethamine 30 Mg/Ml Inj Administered 12/12/22 13:08 Dose 30 mg .ROUTE .iMove-Mirifice ONE Lab/Rad Data: Laboratory Result Diagrams 12/12/22 12:19 12/12/22 11:55 Laboratory Results 12/12/22 12/12/22 12/12/22 Range/Units 12:19 11:55 11:55 WBC 8.1 (4.0-10.5) x10^3/uL RBC 4.22 (4.1-5.4) x10^6/uL Hgb 12.4 (12.0-16.0) g/dL Hct 39.6 (35-47) % MCV 93.8 (78-100) fL MCH 29.4 (26-32) pg MCHC 31.3 L (32-36) g/dL RDW 12.8 (11.5-14.0) % Plt Count 410 (150-450) x10^3/uL MPV 9.7 (7.5-11.0) fL Gran % 51.7 (36.0-66.0) % Immature Gran % (Auto) 0.2 (0.00-0.4) % Nucleat RBC Rel Count 0.0 (0.00-0.1) % Eos # (Auto) 0.18 (0-0.5) x10^3/uL Immature Gran # (Auto) 0.02 (0.00-0.03) x10^3u/L Absolute Lymphs (auto) 3.02 (1.0-4.6) x10^3/uL Absolute Monos (auto) 0.65 (0.0-1.3) x10^3/uL Absolute Nucleated RBC 0.00 (0.00-0.01) x10^3u/L Lymphocytes % 37.3 (24.0-44.0) % Monocytes % 8.0 (0.0-12.0) % Eosinophils % 2.2 (0.00-5.0) % Basophils % 0.6 (0.0-0.4) % Absolute Granulocytes 4.18 (1.4-6.9) x10^3/uL Basophils # 0.05 (0-0.4) x10^3/uL Sodium Direct 136 L (138-146) mmol/L Potassium 3.8 (3.5-4.9) mmol/L Chloride 96 L (98-109) mmol/L Carbon Dioxide 30 H (24-29) mmol/L Venous BUN 16 (8-26) mg/dL Creatinine 1.0 (0.6-1.3) mg/dL Glucose 82 (70-105) mg/dL Ionized Calcium 1.09 L (1.12-1.32) mmol/L Total Bilirubin 0.60 (0.2-1.3) mg/dL AST 40 H (14-36) U/L ALT 24 (0-35) U/L Alkaline Phosphatase 95 (38-126) U/L Troponin I < 0.012 (0.000-0.034) ng/mL Serum Total Protein 8.0 (6.3-8.2) g/dL Albumin 4.4 (3.5-5.0) g/dL Urine Color (Yellow) Urine Appearance (Clear) Urine pH (4.6-8.0) Ur Specific [place] (1.005-1.030) Urine Protein (Negative) Urine Glucose (UA) (Negative) mg/dL Urine Ketones (Negative) Urine Blood (Negative) Urine Nitrite (Negative) Urine Bilirubin (Negative) Urine Urobilinogen (0.2) mg/dL Ur Leukocyte Esterase (Negative) U Hyaline Cast (Auto) (0-2) /LPF Urine Microscopic RBC (0-5) /HPF Urine Microscopic WBC (0-5) /HPF Ur Epithelial Cells (None Seen) /HPF Urine Bacteria (None Seen) /HPF Urine Culture Reflexed (NO) 12/12/22 Range/Units 11:55 WBC (4.0-10.5) x10^3/uL RBC (4.1-5.4) x10^6/uL Hgb (12.0-16.0) g/dL Hct (35-47) % MCV (78-100) fL MCH (26-32) pg MCHC (32-36) g/dL RDW (11.5-14.0) % Plt Count (150-450) x10^3/uL MPV (7.5-11.0) fL Gran % (36.0-66.0) % Immature Gran % (Auto) (0.00-0.4) % Nucleat RBC Rel Count (0.00-0.1) % Eos # (Auto) (0-0.5) x10^3/uL Immature Gran # (Auto) (0.00-0.03) x10^3u/L Absolute Lymphs (auto) (1.0-4.6) x10^3/uL Absolute Monos (auto) (0.0-1.3) x10^3/uL Absolute Nucleated RBC (0.00-0.01) x10^3u/L Lymphocytes % (24.0-44.0) % Monocytes % (0.0-12.0) % Eosinophils % (0.00-5.0) % Basophils % (0.0-0.4) % Absolute Granulocytes (1.4-6.9) x10^3/uL Basophils # (0-0.4) x10^3/uL Sodium Direct (138-146) mmol/L Potassium (3.5-4.9) mmol/L Chloride (98-109) mmol/L Carbon Dioxide (24-29) mmol/L Venous BUN (8-26) mg/dL Creatinine (0.6-1.3) mg/dL Glucose (70-105) mg/dL Ionized Calcium (1.12-1.32) mmol/L Total Bilirubin (0.2-1.3) mg/dL AST (14-36) U/L ALT (0-35) U/L Alkaline Phosphatase (38-126) U/L Troponin I (0.000-0.034) ng/mL Serum Total Protein (6.3-8.2) g/dL Albumin (3.5-5.0) g/dL Urine Color Yellow (Yellow) Urine Appearance Clear (Clear) Urine pH 7.0 (4.6-8.0) Ur Specific [place] <=1.005 (1.005-1.030) Urine Protein Negative (Negative) Urine Glucose (UA) Negative (Negative) mg/dL Urine Ketones Negative (Negative) Urine Blood Negative (Negative) Urine Nitrite Negative (Negative) Urine Bilirubin Negative (Negative) Urine Urobilinogen 0.2 (0.2) mg/dL Ur Leukocyte Esterase Negative (Negative) U Hyaline Cast (Auto) NONE SEEN (0-2) /LPF Urine Microscopic RBC 0-2 (0-5) /HPF Urine Microscopic WBC 0-2 (0-5) /HPF Ur Epithelial Cells None Seen (None Seen) /HPF Urine Bacteria None Seen (None Seen) /HPF Urine Culture Reflexed NO (NO) - Progress Progress: improved Progress Note: Patient is a 57-year-old female presents to our ED with colicky right lower abdominal pain. Physical exam reveals some tenderness in the right lower abdomen. Overlying soft tissue intact. No signs of trauma. CT abdomen pelvis shows no acute findings. CBC CMP essentially nonremarkable. AST ALT within normal limits. Troponin negative. Urinalysis negative. Patient received Toradol for pain control. Patient also received normal saline. No indication for further work-up. Patient advised that there could potentially be an underlying pathology that we are not picking up. If symptoms worsen patient to return to our ED. Patient agrees to follow-up with her primary care doctor within 48 hours for reevaluation. Portions of this note were created with voice recognition technology. There may be grammatical, spelling, punctuation or sound alike errors Complexity of problem addressed is moderate acute complicated. Complexity of data reviewed and analyzed is moderate. Test ordered test reviewed and analyzed. Clinical correlation made between findings. No significant findings. Patient currently asymptomatic. No indication for further work-up at this time. Risk of complication and or risk of morbidity/mortality of patient management is moderate. A prescription for Toradol was forwarded to patient's pharmacy. We will discharge home. Vital stable. Plan of care established via shared decision making. Time spent to discharge patient is approximately 10 to 15 minutes. Portions of this note were created with voice recognition technology. There may be grammatical, spelling, punctuation or sound alike errors 12/12/22 13:39 Counseled pt/family regarding: lab results, diagnosis, need for follow-up, rad results - Departure Departure Disposition: Home Clinical Impression: Abdominal pain Condition: Stable Critical Care Time: No Referrals: CORNELIUS ALMENDAREZ [Primary Care Provider] - Follow up/PCP as directed Prescriptions: Ketorolac Trometh 10 mg Tab [TORAdol 10 MG TABLET] 10 mg PO TID 5 Days #15 tablet
[2022-12-12 12:46] LABS: ALBUMIN 4.4 g/dL (3.5-5.0); BILIRUBIN,TOTAL 0.6 mg/dL (0.2-1.3); ISTAT K 3.8 mmol/L (3.5-4.9); ISTAT iCA 1.09 mmol/L (1.12-1.32)
[2022-12-12 12:47] LABS: ADD URINE CULTURE? NO (NO); Appearance Clear (Clear); Bacteria None Seen /HPF (None Seen); Bilirubin Negative (Negative); Blood Negative (Negative); Epithelial Cells None Seen /HPF (None Seen); Glucose, Urine Negative (Negative); Hyaline Casts NONE SEEN /LPF (0-2); Ketones Negative (Negative); Leukocyte Esterase Negative (Negative); Nitrite Negative (Negative); Protein,Urine Dip Negative (Negative); RBC 0-2 /HPF (0-5); Specific Gravity <=1.005 (1.005-1.030); Urobilinogen 0.2 mg/dL (0.2); WBC 0-2 /HPF (0-5)
[2022-12-12 12:56] VITALS: BP 145/86; PULSE 69
[2022-12-12] MEDS ORDERED: Sodium Chloride 0.9% 1000 ML 1,000 ML ONE (13:07)
[2022-12-12] MEDS ORDERED: TORAdol 30 mg Injection ONE (13:07)
[2022-12-12 13:31] VITALS: O2SAT 100
== END 2022-12-12 14:01 | disposition home or self-care (01) ==
LOC: ED 11:32
DX: R10.31 Right lower quadrant pain (principal); R19.7 Diarrhea, unspecified; I10 Essential (primary) hypertension; Z79.899 Other long term (current) drug therapy
CPT/HCPCS: 36000; 36415; 74176; 80047; 81001; 82040; 82247; 83521; 84075; 84450; 84460; 84484; 85025; 96374; 99284; J1885

== ENCOUNTER 2024-07-10 15:10 | Emergency (ER) | payer OTHER ==
[2024-07-10 15:24] VITALS: BP 143/98; PULSE 69; RESP 16; TEMP 97; O2SAT 97
[2024-07-10] MEDS ORDERED: Adacel Vial IM ONE (15:35)
--- NOTE | 2024-07-10 15:40 | ERPHSYRPT ---
- History of Present Illness Time Seen by Provider: 07/10/24 15:33 Source: patient Exam Limitations: no limitations Patient Subjective Stated Complaint: pt here for laceration to right palm of hand, she hurt it on a nail that was in the wall Triage Nursing Assessment: pt alert, walked in, resp easy, skin w/d/p, has flap laceration to palm of right hand. no bleeding noted Physician History: 59-year-old presented in the ER with laceration to right palm prior to arrival while she was cleaning a cabinet and accidentally got on a sharp edge of a nail. Patient reports mild dull aching pain with a flap laceration. No difficulty movements of the finger, no numbness or tingling sensation. Superficial half centimeter inverted V shaped flap laceration right hand palmar aspect closer to fourth metacarpophalangeal joint area with no active spurting or oozing. At superficial, no exposed tendons. Distal neurovascular intact. I do not think patient needs stitches with such a thin flap, recommended/discussed glue Steri-Strip which are applied and laceration is repaired. Tetanus is updated. Recommended Tylenol/ibuprofen as needed for symptomatic relief. Placed and in the premade aluminum splint to avoid hyperextension which can cause wound opening. Wound care discussed, also signs symptoms of worsening needing return to ER which she seems understanding. Stable for discharge. Allergies/Adverse Reactions: milk Allergy (Mild, Verified 07/10/24 15:17) unknown Home Medications: Fluoxetine HCl 20 mg [Prozac 20 MG] 20 mg PO HS 01/13/13 [History] Levothyroxine Sodium 50 Mcg [Synthroid 50 Mcg] 50 mcg PO DAILY 01/13/13 [History] Metoprolol Succinate 50 mg [Toprol Xl 50 MG] 50 mg PO DAILY 04/11/17 [History] Triamterene/Hydrochlorothiazid [Triamterene-Hctz 37.5-25 mg Tb] 1 each PO DAILY 04/11/17 [History] Omeprazole 20 mg PO DAILY 11/18/19 [History] Simvastatin 20Mg [Zocor 20Mg] 20 mg PO DAILY 11/18/19 [History] Fluticasone Propionate [Flovent 110 Mcg MDI] 2 puffs DAILY 09/03/20 [History] Fluticasone/Umeclidin/Vilanter [Trelegy Ellipta 200-62.5-25] 1 puff IH DAILY 12/12/22 [History] Hx Tetanus, Diphtheria Vaccination/Date Given: No Hx Influenza Vaccination/Date Given: Yes Hx Pneumococcal Vaccination/Date Given: No Immunizations Up to Date: Yes Travel Risk - International Travel Have you traveled outside of the country in past 3 weeks: No - Emerging Infectious Disease Are you exhibiting symptoms associated with any current EIDs: No - Review of Systems Constitutional: No Symptoms Ears, Nose, & Throat: No Symptoms Respiratory: No Symptoms Cardiac: No Symptoms Abdominal/Gastrointestinal: No Symptoms Musculoskeletal: Injury Skin: Skin Lesions Neurological: No Symptoms - Past Medical History Pertinent Past Medical History: Yes Neurological History: No Pertinent History ENT History: No Pertinent History Cardiac History: Hypertension, Other Respiratory History: Asthma, COPD Endocrine Medical History: Other Musculoskeletal History: Arthritis GI Medical History: Other History: No Pertinent History Psycho-Social History: Depression Female Reproductive Disorders: Menstrual Problems Other Medical History: RAYNAUDS SYNDROME. MITRAL VALVE PROPLASE, HEART MURMUR,THYROID ISSUES. ARTHRITIS IN BACK AND RIGHT HIP. PATIENT REPORTS 3 C- SECTIONS, OVARIAN ABLATION, GALL BLADDER REMOVAL, T&A REMOVAL, INJECTION IN BACK ~ 6 MONTHS AGO. - Past Surgical History Past Surgical History: Yes Neuro Surgical History: No Pertinent History Cardiac: No Pertinent History Respiratory: No Pertinent History Gastrointestinal: Cholecystectomy Genitourinary: No Pertinent History Musculoskeletal: No Pertinent History Female Surgical History: Section Other Surgical History: uterine ablation - Social History Smoking Status: Never smoker Exposure to second hand smoke: No Drug Use: none Patient Lives Alone: Yes - Social Determinants of Health Will the patient participate in the screening: Declined to provide - Nursing Vital Signs Nursing Vital Signs: Initial Vital Signs Temperature 97.0 F 07/10/24 15:23 Pulse Rate 69 07/10/24 15:23 Respiratory Rate 16 07/10/24 15:23 Blood Pressure 143/98 07/10/24 15:23 O2 Sat by Pulse Oximetry 97 07/10/24 15:23 Pain Scale Pain Intensity 7 - Physical Exam General Appearance: no apparent distress Neck Exam: normal inspection, full range of motion Cardiovascular/Respiratory Exam: normal breath sounds, regular rate/rhythm Wrist Exam: normal inspection, non-tender, no evidence of injury Hand Exam: laceration (Superficial inverted V shaped flap laceration almost 0.5 cm on each side.) Neuro/Tendon Exam: normal sensation, normal motor functions, normal tendon functions, no evidence tendon injury Mental Status Exam: alert, oriented x 3, cooperative Skin Exam: normal color SpO2 Interpretation: normal SpO2: 97 O2 Delivery: Room Air Procedures - Laceration/Wound Repair Right Anterior Distal Volar Hand Time of Procedure: 15:39 Wound Location: Right, hand Wound Length (cm): 1 Wound's Depth, Shape: superficial, flap Wound Explored: clean Irrigated: Yes Hibiclens Prep: Yes Wound Repaired With: Steri-strips, Dermabond Splint Applied?: Yes Type of Splint Applied: Premade aluminum Ordered Tests: Medication Summary Generic Name Dose Route Start Last Admin Trade Name Freq PRN Reason Stop Dose Admin Diphtheria/Tetanus/Acell Pertussis 0.5 ml 07/10/24 15:34 Tdap --Diph,Pertuss(Acell),Tet Vac/Pf 0.5 Ml Vial IM 07/10/24 15:35 .ONCE ONE - Progress Progress: improved Progress Note: 07/10/24 15:39 59-year-old presented in the ER with laceration to right palm prior to arrival while she was cleaning a cabinet and accidentally got on a sharp edge of a nail. Patient reports mild dull aching pain with a flap laceration. No difficulty movements of the finger, no numbness or tingling sensation. Superficial half centimeter inverted V shaped flap laceration right hand palmar aspect closer to fourth metacarpophalangeal joint area with no active spurting or oozing. At superficial, no exposed tendons. Distal neurovascular intact. I do not think patient needs stitches with such a thin flap, recommended/discussed glue Steri-Strip which are applied and laceration is repaired. Tetanus is updated. Recommended Tylenol/ibuprofen as needed for symptomatic relief. Placed and in the premade aluminum splint to avoid hyperextension which can cause wound opening. Wound care discussed, also signs symptoms of worsening needing return to ER which she seems understanding. Stable for discharge. Counseled pt/family regarding: diagnosis, need for follow-up Medical Desision Making - Diagnostic Testing Diagnostic test were ordered, analyzed, and reviewed by me: No - Risk of complications The pt has a mod risk of morbidity or mortality based on: Need for prescription drug management - Departure Departure Disposition: Home Clinical Impression: Hand laceration Condition: Stable Critical Care Time: No Referrals: CORNELIUS ALMENDAREZ [Primary Care Provider] - Follow up with PCP 1 day Instructions: Laceration Repair With Glue (DC) Additional Instructions: Keep it clean and dry. Avoid exertional activities. Tylenol/ibuprofen as needed. Intermittent ice application. Follow-up with primary care for reevaluation. Return to ER for increasing pain swelling redness, difficulty movements of the fingers, fever chills etc.
[2024-07-10] MEDS: Adacel Vial IM ONE (15:42)
== END 2024-07-10 15:57 | disposition home or self-care (01) ==
LOC: ED 15:10
DX: S61.411A Laceration without foreign body of right hand, initial encounter (principal); W45.0XXA Nail entering through skin, initial encounter; W26.8XXA Contact with other sharp object(s), not elsewhere classified, initial encounter; Y93.E9 Activity, other interior property and clothing maintenance; I10 Essential (primary) hypertension; Z79.899 Other long term (current) drug therapy; Z23 Encounter for immunization
CPT/HCPCS: 12001; 90471; 90715; 99282; 99283; A4570

== ENCOUNTER 2024-07-12 12:55 | Emergency (ER) | payer OTHER ==
--- NOTE | 2024-07-12 12:56 | ERPHSYRPT ---
- History of Present Illness Time Seen by Provider: 07/12/24 12:56 Source: patient, EMS Exam Limitations: clinical condition Physician History: This is a 59-year-old white female patient was brought to the emergency department by the paramedics because of severe shortness of breath and possible asthma attack that occurred while she was driving. The patient has a history of asthma and COPD. She was diagnosed with influenza A in early June and because she was not improving, the patient was placed on prednisone and amoxicillin by her patient care specialist (Dr. Moura). Patient does not have a nebulizer and she uses Flovent inhaler occasionally. In the last week she has had 3 episodes of "asthma/bronchitis attacks". She is under a lot of stress. She has no exposure to smoke. She is not a smoker. The paramedics provided the patient with a nebulizer treatment. Patient specifically states that she was coughing so hard that she coughed up a very firm piece of tissue that as soon as was expelled she could breathe again. Patient has a history of hypertension, gastroesophageal reflux disease, hyperlipidemia, hypothyroidism and depression. Patient's room air oxygen saturation level is 98%. Timing/Duration: today Activities at Onset: none Severity of Dyspnea-Max: mild Severity of Dyspnea-Current: mild Possible Cause: occasional episodes (3 episodes in the last week) Modifying Factors: Improves With: coughing Associated Symptoms: anxiety, cough, productive cough, No chest pain/discomfort, No wheezing Allergies/Adverse Reactions: milk Allergy (Mild, Verified 07/10/24 15:17) unknown Home Medications: Fluoxetine HCl 20 mg [Prozac 20 MG] 20 mg PO HS 01/13/13 [History] Levothyroxine Sodium 50 Mcg [Synthroid 50 Mcg] 50 mcg PO DAILY 01/13/13 [History] Metoprolol Succinate 50 mg [Toprol Xl 50 MG] 50 mg PO DAILY 04/11/17 [History] Triamterene/Hydrochlorothiazid [Triamterene-Hctz 37.5-25 mg Tb] 1 each PO DAILY 04/11/17 [History] Omeprazole 20 mg PO DAILY 11/18/19 [History] Simvastatin 20Mg [Zocor 20Mg] 20 mg PO DAILY 11/18/19 [History] Fluticasone Propionate [Flovent 110 Mcg MDI] 2 puffs DAILY 09/03/20 [History] Fluticasone/Umeclidin/Vilanter [Trelegy Ellipta 200-62.5-25] 1 puff IH DAILY 12/12/22 [History] Hx Tetanus, Diphtheria Vaccination/Date Given: No Hx Influenza Vaccination/Date Given: Yes Hx Pneumococcal Vaccination/Date Given: No Travel Risk - International Travel Have you traveled outside of the country in past 3 weeks: No - Emerging Infectious Disease Are you exhibiting symptoms associated with any current EIDs: Yes Symptoms: Cough: New Onset, Shortness of Breath - Review of Systems Constitutional: No Symptoms Eyes: No Symptoms Ears, Nose, & Throat: No Symptoms Respiratory: Cough, Dyspnea Cardiac: No Symptoms Abdominal/Gastrointestinal: No Symptoms Genitourinary Symptoms: No Symptoms Musculoskeletal: No Symptoms Skin: No Symptoms Neurological: No Symptoms Psychological: No Symptoms Endocrine: No Symptoms Hematologic/Lymphatic: No Symptoms Immunological/Allergic: No Symptoms All Other Systems: Reviewed and Negative - Past Medical History Pertinent Past Medical History: Yes Neurological History: No Pertinent History ENT History: No Pertinent History Cardiac History: Hypertension, Other Respiratory History: Asthma, COPD Endocrine Medical History: Other Musculoskeletal History: Arthritis GI Medical History: Other History: No Pertinent History Psycho-Social History: Depression Female Reproductive Disorders: Menstrual Problems Other Medical History: RAYNAUDS SYNDROME. MITRAL VALVE PROPLASE, HEART MURMUR,THYROID ISSUES. ARTHRITIS IN BACK AND RIGHT HIP. PATIENT REPORTS 3 C- SECTIONS, OVARIAN ABLATION, GALL BLADDER REMOVAL, T&A REMOVAL, INJECTION IN BACK ~ 6 MONTHS AGO. - Past Surgical History Past Surgical History: Yes Neuro Surgical History: No Pertinent History Cardiac: No Pertinent History Respiratory: No Pertinent History Gastrointestinal: Cholecystectomy Genitourinary: No Pertinent History Musculoskeletal: No Pertinent History Female Surgical History: Section Other Surgical History: uterine ablation - Social History Smoking Status: Never smoker Exposure to second hand smoke: No Drug Use: none Patient Lives Alone: Yes - Social Determinants of Health Will the patient participate in the screening: Declined to provide - Nursing Vital Signs Nursing Vital Signs: Initial Vital Signs Temperature 98.8 F 07/12/24 12:55 Pulse Rate 76 07/12/24 12:55 Respiratory Rate 13 07/12/24 12:55 Blood Pressure 128/80 07/12/24 12:55 O2 Sat by Pulse Oximetry 97 07/12/24 12:55 Pain Scale Pain Intensity 0 - Physical Exam General Appearance: no apparent distress, alert, anxiety Eye Exam: PERRL/EOMI, eyes nml inspection Ears, Nose, Throat Exam: hearing grossly normal, normal ENT inspection, normal pharynx Neck Exam: normal inspection, non-tender, supple, full range of motion Respiratory Exam: normal breath sounds, lungs clear, airway intact, No chest tenderness, No respiratory distress Cardiovascular/Chest Exam: normal heart sounds, regular rate/rhythm Abdominal/Gastrointestinal Exam: soft, normal bowel sounds, No tenderness Rectal Exam: not done Extremity Exam: non-tender, normal range of motion, normal inspection Neurologic Exam: alert, oriented x 3, cooperative, web editor II-XII nml as tested, sensation nml Skin Exam: normal color, warm, dry Lymphatic Exam: No adenopathy SpO2 Interpretation: normal O2 Delivery: Room Air - Course Nursing assessment & vital signs reviewed: Yes EKG Interpreted by Me: RATE ([id number]), Sinus Rhythm, NORMAL AXIS, NORMAL INTERVALS, NORMAL QRS, NORMAL ST-T, Other (No acute ischemic changes on today's twelve-lead EKG. QTc is 453) Ordered Tests: Active Orders 24 hr Category Date Time Status EKG-ER Only STAT Care 07/12/24 12:56 Active IV Insertion STAT Care 07/12/24 12:56 Active Pulse Oximetry (ED) STAT Care 07/12/24 12:56 Active CHEST 1 VIEW (PORTABLE) Stat Exams 07/12/24 15:50 Taken BLOOD CULTURE Stat Lab 07/12/24 13:50 Received CBC W DIFF Stat Lab 07/12/24 13:36 Completed CMP Stat Lab 07/12/24 13:36 Completed NT PRO BNPII Stat Lab 07/12/24 13:36 Completed TROPONIN Q4H Lab 07/12/24 13:36 Completed TROPONIN Q4H Lab 07/12/24 17:00 Ordered TROPONIN Q4H Lab 07/12/24 21:00 Ordered Medication Summary Discontinued Medications Generic Name Dose Route Start Last Admin Trade Name Freq PRN Reason Stop Dose Admin Methylprednisolone Sodium 0 mg 07/12/24 14:20 07/12/24 15:09 Succinate 125 mg/ Sterile IV 07/12/24 14:21 125 mg Water 2 ml STAT ONE Administration Methylprednisolone Sodium Succinate Confirm 07/12/24 15:04 Methylprednis Sod Succ 125 Mg/2 Ml Vial Administered 07/12/24 15:05 Dose 125 mg .ROUTE .[facility] ONE Sterile Water Confirm 07/12/24 15:04 Water For Injection,Sterile 10 Ml Vial Administered 07/12/24 15:05 Dose 10 ml IJ .STK-MED ONE Lab/Rad Data: Laboratory Result Diagrams 07/12/24 13:36 07/12/24 13:36 Laboratory Results 07/12/24 07/12/24 07/12/24 Range/Units 13:36 13:36 13:36 WBC 6.6 (3.98-10.04) x10^3/uL RBC 3.97 (3.93-5.22) x10^6/uL Hgb 11.9 (11.2-15.7) g/dL Hct 36.6 (34.1-44.9) % MCV 92.2 (79.4-94.8) fL MCH 30.0 (25.6-32.2) pg MCHC 32.5 (32.2-35.5) g/dL RDW 14.0 (11.7-14.4) % Plt Count 344 (182-369) x10^3/uL MPV 9.8 (9.4-12.3) fL Gran % 79.9 H (34.0-71.1) % Immature Gran % (Auto) 0.5 H (0.001-0.429) % Nucleat RBC Rel Count 0.0 (0.00-0.2) % Eos # (Auto) 0 L (0.04-0.36) x10^3/uL Immature Gran # (Auto) 0.03 (0.001-0.031) x10^3u/L Absolute Lymphs (auto) 1.09 L (1.18-3.74) x10^3/uL Absolute Monos (auto) 0.19 L (0.24-0.86) x10^3/uL Absolute Nucleated RBC 0.00 (0.00-0.012) x10^3u/L Lymphocytes % 16.4 L (19.3-51.7) % Monocytes % 2.9 L (4.7-12.5) % Eosinophils % 0.0 L (0.7-5.8) % Basophils % 0.3 (0.1-1.2) % Absolute Granulocytes 5.30 (1.56-6.13) x10^3/uL Basophils # 0.02 (0.01-0.08) x10^3/uL Sodium 138 (135-145) mmol/L Potassium 4.0 (3.5-5.1) mmol/L Chloride 105 (98-107) mmol/L Carbon Dioxide 23 (22-30) mmol/L Anion Gap 14.4 (5-15) MEQ/L BUN 12 (7-17) mg/dL Creatinine 0.82 (0.52-1.04) mg/dL Estimated GFR 82.4 ML/MIN Glucose 113 H (74-106) mg/dL Calcium 9.8 (8.4-10.2) mg/dL Total Bilirubin 0.60 (0.2-1.3) mg/dL AST 31 (14-36) U/L ALT 27 (0-35) U/L Alkaline Phosphatase 76 (38-126) U/L Troponin I < 0.012 (0.000-0.033) ng/mL NT-Pro-B Natriuret Pep 75.2 (<300) pg/mL Serum Total Protein 7.2 (6.3-8.2) g/dL Albumin 4.5 (3.5-5.0) g/dL Influenza Type A Ag (NEGATIVE) Influenza Type B Ag (NEGATIVE) RSV (PCR) (NEGATIVE) SARS-CoV-2 (PCR) (NEGATIVE) 07/12/24 Range/Units 13:22 WBC (3.98-10.04) x10^3/uL RBC (3.93-5.22) x10^6/uL Hgb (11.2-15.7) g/dL Hct (34.1-44.9) % MCV (79.4-94.8) fL MCH (25.6-32.2) pg MCHC (32.2-35.5) g/dL RDW (11.7-14.4) % Plt Count (182-369) x10^3/uL MPV (9.4-12.3) fL Gran % (34.0-71.1) % Immature Gran % (Auto) (0.001-0.429) % Nucleat RBC Rel Count (0.00-0.2) % Eos # (Auto) (0.04-0.36) x10^3/uL Immature Gran # (Auto) (0.001-0.031) x10^3u/L Absolute Lymphs (auto) (1.18-3.74) x10^3/uL Absolute Monos (auto) (0.24-0.86) x10^3/uL Absolute Nucleated RBC (0.00-0.012) x10^3u/L Lymphocytes % (19.3-51.7) % Monocytes % (4.7-12.5) % Eosinophils % (0.7-5.8) % Basophils % (0.1-1.2) % Absolute Granulocytes (1.56-6.13) x10^3/uL Basophils # (0.01-0.08) x10^3/uL Sodium (135-145) mmol/L Potassium (3.5-5.1) mmol/L Chloride (98-107) mmol/L Carbon Dioxide (22-30) mmol/L Anion Gap (5-15) MEQ/L BUN (7-17) mg/dL Creatinine (0.52-1.04) mg/dL Estimated GFR ML/MIN Glucose (74-106) mg/dL Calcium (8.4-10.2) mg/dL Total Bilirubin (0.2-1.3) mg/dL AST (14-36) U/L ALT (0-35) U/L Alkaline Phosphatase (38-126) U/L Troponin I (0.000-0.033) ng/mL NT-Pro-B Natriuret Pep (<300) pg/mL Serum Total Protein (6.3-8.2) g/dL Albumin (3.5-5.0) g/dL Influenza Type A Ag NEGATIVE (NEGATIVE) Influenza Type B Ag NEGATIVE (NEGATIVE) RSV (PCR) NEGATIVE (NEGATIVE) SARS-CoV-2 (PCR) NEGATIVE (NEGATIVE) - Progress Progress: improved, re-examined Air Movement: good Progress Note: 07/12/24 14:28 My medical decision making of the assignment of moderate complexity to this patient's medical issue today is based on review of the patient's past medical history, review of the patient's medication list, review the patient drug allergy list, history present illness and physical findings on examination. The workup in this patient includes placement of an intravenous line, infusion of Solu-Medrol intravenously, RT evaluation and management, CBC, CMP, twelve-lead EKG, BNP, chest x-ray, troponin level, viral swabs, monotest. Differential diagnosis includes but is not limited to mucous plug, bronchitis, exacerbation of asthma, pneumonia, arrhythmia, myocardial infarction, CHF, COPD exacerbation 07/12/24 16:13 I interpreted the patient's laboratory data results. Based on the laboratory data results, there are no acute, emergent medical issues. I interpreted the patient's preliminary chest x-ray report. I compared this portable chest x-ray today to 1 that was performed in December 2019. There are no acute cardiopulmonary abnormalities. There are no new changes on today's chest x-ray. Blood Culture(s) Obtained: Yes Counseled pt/family regarding: lab results, diagnosis, need for follow-up, rad results Medical Desision Making - Diagnostic Testing Diagnostic test were ordered, analyzed, and reviewed by me: Yes Radiological Interpretation: Interpreted by me, Teleradiologist Report - Risk of complications Minimal Risk: Minimal risk of morbidity - Departure Departure Disposition: Home Clinical Impression: COPD exacerbation, Asthma exacerbation Condition: Stable Critical Care Time: No Referrals: CORNELIUS ALMENDAREZ [Primary Care Provider] - Follow up/PCP as directed Instructions: Chronic Obstructive Pulmonary Disease Additional Instructions: Avoid any exposure to smoke. Use the albuterol inhalers for emergent/rescue acute issues. Use the albuterol nebulizer treatments every 4 hours while awake for the next 48 to 72 hours. Call your patient care specialist and primary care provider on 07/14/2024, to make arranges for follow-up appointment for further evaluation management. Continue your steroids and antibiotics as prescribed. Prescriptions: Albuterol 2.5 mg/3 ml Neb [Proventil 2.5 mg/3 ml Neb] 2.5 mg IH Q6H #25 units Albuterol 8 gm Mdi Hfa [Ventolin Hfa MDI] 8 gm IH Q4H #1 unit
[2024-07-12 13:24] VITALS: TEMP 98.8
[2024-07-12 13:59] LABS: BASOPHIL % 0.3 % (0.1-1.2); Basophil (Absolute #) 0.02 x10^3/uL (0.01-0.08); Eosinophil (Absolute #) 0 x10^3/uL (0.04-0.36); Hematocrit 36.6 % (34.1-44.9); Hemoglobin 11.9 g/dL (11.2-15.7); IMMATURE GRAN # 0.03 x10^3u/L (0.001-0.031); IMMATURE GRAN % 0.5 % (0.001-0.429); Lymphocyte (Absolute #) 1.09 x10^3/uL (1.18-3.74); Lymphocytes % 16.4 % (19.3-51.7); Mean Cell Volume 92.2 fL (79.4-94.8); Mean Corpuscular Hgb Concent. 32.5 g/dL (32.2-35.5); Mean Platelet Volume 9.8 fL (9.4-12.3); Monocyte (Absolute #) 0.19 x10^3/uL (0.24-0.86); Monocytes % 2.9 % (4.7-12.5); Neutrophil % 79.9 % (34.0-71.1); Platelet Count 344 x10^3/uL (182-369); Red Blood Count 3.97 x10^6/uL (3.93-5.22); White Blood Count 6.6 x10^3/uL (3.98-10.04)
[2024-07-12 14:13] LABS: ALBUMIN 4.5 g/dL (3.5-5.0); ANION GAP 14.4 MEQ/L (5-15); BILIRUBIN,TOTAL 0.6 mg/dL (0.2-1.3); Calcium 9.8 mg/dL (8.4-10.2); Creatinine 1 0.82 mg/dL (0.52-1.04); EST GLOMERULAR FILTRATION RATE 82.4 ML/MIN; Total Protein 7.2 g/dL (6.3-8.2)
[2024-07-12 14:26] LABS: NT PRO BNPII 75.2 pg/mL (<300); TROPONIN < 0.012 ng/mL (0.000-0.033)
[2024-07-12 14:38] LABS: INFLUENZA A NEGATIVE (NEGATIVE); INFLUENZA B NEGATIVE (NEGATIVE); RESPIRATORY SYNCTIAL VIRUS NEGATIVE (NEGATIVE); SARS-CoV-2 Xpert Express NEGATIVE (NEGATIVE)
[2024-07-12] MEDS ORDERED: solu-MEDROL ONE (15:04)
[2024-07-12] MEDS ORDERED: Sterile H2O 10 ml IJ ONE (15:04)
[2024-07-12] MEDS: solu-MEDROL 125 MG, Sterile H2O 10 ml 2 ML IV ONE (15:09)
[2024-07-12 16:11] VITALS: RESP 19
[2024-07-12 16:38] VITALS: BP 137/77; PULSE 70; O2SAT 98
--- NOTE | 2024-07-12 20:26 | XRAY ---
Indication: Short of breath. Cough. Comparison: May 10, 2021 Portable chest again hyperinflated with minimal bibasilar subsegmental atelectasis/scarring. Remaining heart and lungs unremarkable. Bony thorax intact again with osteopenia and minimal degenerative changes. No new/acute findings.
== END 2024-07-12 16:39 | disposition home or self-care (01) ==
LOC: ED 12:55
DX: J44.1 Chronic obstructive pulmonary disease with (acute) exacerbation (principal); J45.901 Unspecified asthma with (acute) exacerbation; I10 Essential (primary) hypertension; E78.5 Hyperlipidemia, unspecified; Z79.899 Other long term (current) drug therapy
CPT/HCPCS: 0241U; 36415; 71045; 80053; 83880; 84484; 85025; 87040; 93005; 94760; 96374; 99285; 99284; J2919